=== PATIENT | female | born 1965 | race Caucasian/White ===

== ENCOUNTER 2019-03-10 14:58 | Inpatient (IN) ==
[2019-03-10] MEDS ORDERED: 0.9 % Sodium Chloride 1,000 ML IVC ONE ×2 (15:15→15:16)
[2019-03-10] MEDS ORDERED: Ondansetron 4 MG/2 ML VIAL IVP ONE (15:15)
[2019-03-10] MEDS ORDERED: Morphine Sulfate 2 MG/ML SYRINGE IVP ONE (15:15)
[2019-03-10] MEDS ORDERED: Pantoprazole 40 MG VIAL IVP ONE (15:16)
[2019-03-10] MEDS ORDERED: Isovue-370 500 ML BOTTLE IVP ONE ×2 (15:16→17:07)
--- NOTE | 2019-03-10 15:17 | Emergency Department Note ---
Disposition Clinical Impression: Hypokalemia, Hypoxemia Disposition: Admitted As Inpatient Condition: Good Time of Disposition: 18:43 Abdominal Pain HPI - General Chief Complaint: ED Abdominal Pain Stated Complaint: ABD Pain N/V Time Seen by Provider: 03/10/19 15:03 Source: patient Nursing Notes Reviewed: Yes Vital Signs Reviewed: Yes - History of Present Illness HPI Narrative: This 53 year female who reports to emergency department for concern for epigastric abdominal pain as well as nausea, vomiting. Patient states that she has had this over the last 2 weeks. Has had a CT scan that was -2 weeks ago and outside facility. Patient states that she is not getting any better. Patient denies any shortness of breath, chest pain. She does report being a type II diabetic mellitus. She localizes the tenderness to the epigastrium. It is sharp, nonradiating. No dysuria, urinary frequency, urgency. Pain Scale: 7 - Related Data Home Medications Medication Instructions Recorded Confirmed Glimepiride [Amaryl] 2 mg PO 0800 04/11/17 03/02/19 Insulin ASPART [Novolog Flexpen] 25 unit SQ TID 01/21/19 02/27/19 Dulaglutide [Trulicity] 0.75 mg SQ HS 02/27/19 02/27/19 FLUoxetine HCl [Prozac] 40 mg PO DAILY 02/27/19 03/02/19 Fenofibrate [Tricor] 54 mg PO DAILY 02/27/19 03/02/19 Fluticasone Propionate Nasal 50 mcg NS DAILY 02/27/19 02/27/19 [Flonase] Gabapentin [Neurontin] 200 mg PO TID 02/27/19 02/27/19 Insulin ASPART [Novolog] 25 units SQ TIDAC 02/27/19 02/27/19 Loratadine [Claritin] 10 mg PO DAILY 02/27/19 03/02/19 Lurasidone HCl [Latuda] 80 mg PO DAILY 02/27/19 03/02/19 Nystatin POWDER [Nystop] 1 appl TP BID 02/27/19 02/27/19 Omeprazole [PriLOSEC] 20 mg PO DAILY 02/27/19 03/02/19 Oxybutynin Chloride [Ditropan XL] 10 mg PO DAILY 02/27/19 02/27/19 Trospium Chloride 20 mg PO HS 02/27/19 02/27/19 risperiDONE [RisperDAL] 3 mg PO DAILY 02/27/19 02/27/19 Alogliptin Benzoate [Alogliptin] 25 mg PO DAILY 03/02/19 03/02/19 Atorvastatin [Lipitor] 80 mg PO HS 03/02/19 03/02/19 Ciprofloxacin HCl [Cipro] 500 mg PO BID 03/02/19 03/02/19 Furosemide [Lasix] 40 mg PO DAILY 03/02/19 03/02/19 Lisinopril [Zestril] 5 mg PO DAILY 03/02/19 03/02/19 Ondansetron HCl [Zofran] 4 mg PO Q8HR PRN 03/02/19 03/02/19 Potassium Chloride [Klor-Con 10] 10 meq PO DAILY 03/02/19 03/02/19 Promethazine [Phenergan] 25 mg PO Q6HR 03/02/19 03/02/19 metFORMIN [Glucophage] 1,000 mg PO BIDWM 03/02/19 03/02/19 Previous Rx's Medication Instructions Recorded HYDROcodone/Acet 5/325 mg [[place] 1 tab PO Q4H PRN 3 Days #14 tab 02/27/19 5-325 mg] Ondansetron ODT [Zofran ODT] 4 mg SL Q6HR #10 tab.rapdis 02/27/19 Allergies Allergy/AdvReac Type Severity Reaction Status Date / Time No Known Allergies Allergy Verified 03/02/19 14:58 All systems ED: reviewed and negative except as stated. Review of Systems: As Per HPI Constitutional: Denies: fever Cardiovascular: Denies: chest pain Respiratory: Denies: cough, dyspnea Gastrointestinal: Reports: abdominal pain, nausea, vomiting. 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 Psychiatric history: Reports: depression - Social History Smoking status: Current every day smoker Alcohol use: Reports: rarely Drug use: Reports: none Physical Exam - General Limitations: no limitations General appearance: alert, in no apparent distress, other (Patient with accessory muscle use, tachypnea appearing initially) - Head Head exam: normocephalic - Eye Eye exam: Present: EOMI - ENT ENT exam: mucous membranes moist - Neck Neck exam: Present: trachea midline - Chest Chest inspection: Present: symmetric chest wall rise - Respiratory Respiratory exam: Present: normal lung sounds bilaterally. Absent: respiratory distress, accessory muscle use - Cardiovascular Cardiovascular exam: Present: regular rate, normal rhythm, normal heart sounds - Abdominal Exam Abdominal exam: Present: soft, tenderness. Absent: distention, guarding, rebound, rigidity Abdominal tenderness: Present: epigastrium - Extremities Exam Extremities exam: Present: normal capillary refill Course Vital Signs Temperature 97.7 F 03/10/19 14:59 Pulse Rate 87 03/10/19 14:59 Respiratory Rate 16 03/10/19 14:59 Blood Pressure 116/83 03/10/19 14:59 O2 Sat by Pulse Oximetry 97 03/10/19 14:59 Temperature 97.6 F 03/10/19 20:54 Pulse Rate 70 03/10/19 20:54 Respiratory Rate 20 03/10/19 20:54 Blood Pressure 142/108 03/10/19 20:54 O2 Sat by Pulse Oximetry 100 03/10/19 20:54 Oxygen Delivery Oxygen Delivery Nasal Cannula Abdominal Pain - MDM Narrative Medical decision making narrative: 53-year-old female presents emergency department concern for epigastric abdominal pain, nausea, vomiting. She was tachypneic initially. She was hypoxic initially. Patient has CT scan obtained which did not reveal any acute abnormalities. She did have evidence of urinary tract infection which we treated with a gram of Rocephin IV. I was alerted as patient apparently turned blue, and became hypoxic with an O2 saturation down to 80. Responded minimally to the room, oxygen saturations back up to 100% with good waveform at that time. With not knowing the etiology for patient's in onset hypoxia with change of color, obtained a CT angiogram of the chest. Did not reveal any acute evidence of pulmonary embolism or pneumonia or any other cardiac abnormality. EKG did not reveal any ischemic ST changes. Interpretation was hindered somewhat by a bladder stimulator. However, patient is not reporting any chest pain throughout her stay. Due to concern for the hypoxic event that was witnessed by her nursing staff, abdullahi best to be admitted for hypoxic respiratory failure as well as some other electrolyte abnormalities as patient was severely hypokalemic with potassium 2.8. Patient was hemodynamically stable not appearing tachypnic at time of admission. Abdomen/Pelvis CT 03/10/19 15:17 IMPRESSION: 1. No evidence of pulmonary embolic disease. 2. No acute pulmonary findings. 3. No acute findings within the abdomen or pelvis. No CT evidence of appendicitis. 4. Mild thickening of the bladder wall, similar to previous imaging studies. Findings may be secondary to a cystitis. D/ / 03/10/2019 18:31:12 Myles Dave MD / rhea Interpreting Provider: Myles Dave MD Chest X-Ray 03/10/19 15:40 IMPRESSION: No acute process. D/ / Zeferino Goyal MD / Zeferino Goyal MD Interpreting Provider: Zeferino Goyal MD Chest CTA 03/10/19 17:07 IMPRESSION: 1. No evidence of pulmonary embolic disease. 2. No acute pulmonary findings. 3. No acute findings within the abdomen or pelvis. No CT evidence of appendicitis. 4. Mild thickening of the bladder wall, similar to previous imaging studies. Findings may be secondary to a cystitis. D/ / 03/10/2019 18:31:12 Myles Dave MD / rhea Interpreting Provider: Myles Dave MD - Lab Data Result diagrams: 03/10/19 15:35 03/10/19 15:35 Lab Results 03/10/19 03/10/19 03/10/19 Range/Units 15:19 15:35 15:35 WBC 8.7 (4.3-11.1) K/mcL RBC 6.05 H (3.82-4.97) M/mcL Hgb 15.6 H (11.5-15.4) g/dL Hct 48.5 H (35.3-44.9) % MCV 80.2 L (83.0-100.0) fL MCH 25.8 L (28.0-33.3) pg MCHC 32.2 (31.6-35.5) g/dL RDW 15.9 H (11.5-14.5) % Plt Count 194 (140-400) K/mcL MPV 12.7 H (9.4-12.4) fL Immature Gran % 0.2 (0-4) % Seg Neutrophils % 67.7 % Lymphocytes % 22.6 % Monocytes % 8.1 % Eosinophils % 0.9 % Basophils % 0.5 % Neutrophils # 5.9 (1.6-8.9) K/mcL Lymphocytes # 2.0 (0.6-4.6) K/mcL Monocytes # 0.7 (0.0-1.3) K/mcL Eosinophils # 0.1 (0.0-0.6) K/mcL Basophils # 0.0 (0.0-0.2) K/mcL Immature Plt Fraction 12.2 H (1.1-6.1) % Sodium 132 L (136-145) mEq/L Potassium 2.8 L (3.5-5.1) mEq/L Chloride 92 L (98-107) mEq/L Carbon Dioxide 28 (23-29) mEq/L BUN 12 (6-20) mg/dL Creatinine 0.89 (0.60-1.20) mg/dL Est GFR ( Amer) > 60 (> 60) Est GFR (Non-Af Amer) > 60 (> 60) BUN/Creatinine Ratio 13 (6-26) Glucose 301 H (70-105) mg/dL Calculated Osmolality 285 (280-300) Calcium 8.9 (8.6-10.3) mg/dL Total Bilirubin 1.0 (0.3-1.0) mg/dL AST 18 (13-39) Units/L ALT 19 (7-52) Units/L Alkaline Phosphatase 68 (34-104) Units/L Troponin I 0.03 (< 0.04) ng/mL B-Natriuretic Peptide (Less than 100) pg/mL Serum Total Protein 6.6 (6.4-8.9) g/dL Albumin 4.0 (3.5-5.7) g/dL Globulin 2.6 (2.4-3.5) g/dL Albumin/Globulin Ratio 1.5 (1.1-2.2) Lipase 17 (11-82) Units/L Urine Color Yellow (Yellow) Urine Clarity Turbid A (Clear) Urine pH 5.0 (5.0-8.0) pH Units Ur Specific [place] 1.017 (1.010-1.025) Urine Protein Trace (Neg-Trace) mg/dL Urine Glucose (UA) Normal (Normal) mg/dL Urine Ketones Negative (Negative) mg/dL Urine Blood Negative (Negative) Urine Nitrite Negative (Negative) Urine Bilirubin Negative (Negative) Urine Urobilinogen Normal (Normal) mg/dL Ur Leukocyte Esterase Small H (Negative) Urine Microscopic RBC 3-5 H (0-3) per hpf Urine Microscopic WBC 15-30 H (0-3) per hpf Ur Squamous Epith Cells Many H (None-Few) per lpf Urine Bacteria Moderate H (None-Few) per hpf Hyaline Casts Few (None-Few) per lpf Ur Culture Indicated? YES A (NO) 03/10/19 Range/Units 15:35 WBC (4.3-11.1) K/mcL RBC (3.82-4.97) M/mcL Hgb (11.5-15.4) g/dL Hct (35.3-44.9) % MCV (83.0-100.0) fL MCH (28.0-33.3) pg MCHC (31.6-35.5) g/dL RDW (11.5-14.5) % Plt Count (140-400) K/mcL MPV (9.4-12.4) fL Immature Gran % (0-4) % Seg Neutrophils % % Lymphocytes % % Monocytes % % Eosinophils % % Basophils % % Neutrophils # (1.6-8.9) K/mcL Lymphocytes # (0.6-4.6) K/mcL Monocytes # (0.0-1.3) K/mcL Eosinophils # (0.0-0.6) K/mcL Basophils # (0.0-0.2) K/mcL Immature Plt Fraction (1.1-6.1) % Sodium (136-145) mEq/L Potassium (3.5-5.1) mEq/L Chloride (98-107) mEq/L Carbon Dioxide (23-29) mEq/L BUN (6-20) mg/dL Creatinine (0.60-1.20) mg/dL Est GFR ( Amer) (> 60) Est GFR (Non-Af Amer) (> 60) BUN/Creatinine Ratio (6-26) Glucose (70-105) mg/dL Calculated Osmolality (280-300) Calcium (8.6-10.3) mg/dL Total Bilirubin (0.3-1.0) mg/dL AST (13-39) Units/L ALT (7-52) Units/L Alkaline Phosphatase (34-104) Units/L Troponin I (< 0.04) ng/mL B-Natriuretic Peptide 59 (Less than 100) pg/mL Serum Total Protein (6.4-8.9) g/dL Albumin (3.5-5.7) g/dL Globulin (2.4-3.5) g/dL Albumin/Globulin Ratio (1.1-2.2) Lipase (11-82) Units/L Urine Color (Yellow) Urine Clarity (Clear) Urine pH (5.0-8.0) pH Units Ur Specific [place] (1.010-1.025) Urine Protein (Neg-Trace) mg/dL Urine Glucose (UA) (Normal) mg/dL Urine Ketones (Negative) mg/dL Urine Blood (Negative) Urine Nitrite (Negative) Urine Bilirubin (Negative) Urine Urobilinogen (Normal) mg/dL Ur Leukocyte Esterase (Negative) Urine Microscopic RBC (0-3) per hpf Urine Microscopic WBC (0-3) per hpf Ur Squamous Epith Cells (None-Few) per lpf Urine Bacteria (None-Few) per hpf Hyaline Casts (None-Few) per lpf Ur Culture Indicated? (NO) Critical Care Time Critical Care Time: Yes Total Critical Care Time: 35 Attestation: Rectal care time 35 minutes managing patient's chest pain and hypoxic episode. Attestation Statement - Attestation Attestation: Patient was seen with resident physician. I reviewed the history, physical, assessment and plan, and agree with the findings. I also personally evaluated this patient and had [id number] time with this patient. 53-year-old female presents emergency Department with chronic abdominal pain. Patient states she has had pain for months. Tonight midepigastric area and left upper quadrant she been taking Excedrin without any relief. Pain also is a little bit upwards into the chest she feels little short of breath with that as well. He said she has had CT scans in the past and they have not found anything. She is not tried any reflux medications that she is aware of. No other complaints at this time. She is here today because she said she cannot take the pain anymore. Review of systems. Patient also has some nausea and vomiting. Remainder negative. Physical exam vital signs are stable. ENT is unremarkable. Heart regular rhythm and rate. Lungs clear. Abdomen is soft minimal tenderness midepigastric and left upper quadrant. No guarding rigidity. Extremities unremarkable. Neurologically intact. Skin no rashes. Psych normal. ED course. With the patient's shortness of breath we will do CTA of the chest as well as abdomen and pelvis to look for abnormalities. We will get basic labs including LFTs and pancreatic testing. We will treat with IV hydration and nausea medication. As well as pain medication and Protonix. During her stay the nurse reported that the patient had become hypoxic had some cyanotic appearance and of pulse ox dropped into the 80s. Although this resolved spontaneously, it was concerning for possible signs of a PE. A CT of the chest was obtained and it was negative as was a CT the abdomen. Labs are largely unremarkable. Because of the patient's multiple issues and her chest pain she will be admitted for additional evaluation and treatment. We spoke the hospitalist service agreed to accept the patient for admission. Agree with resident physician assessment and plan. ED procedures. I reviewed the patient's EKG as well as the resident physician interpretation and I agree with the findings.
[2019-03-10 15:28] LABS: Bilirubin,Urine Negative (Negative); Blood,Urine Negative (Negative); Clarity,Urine Turbid (Clear); Color,Urine Yellow (Yellow); Glucose,Urine (UA) Normal (Normal); Ketones,Urine Negative (Negative); Leukocyte Esterase,Urine Small (Negative); Nitrite,Urine Negative (Negative); Protein,Urine Trace mg/dL (Neg-Trace); Specific Gravity,Urine 1.017 (1.010-1.025); Urobilinogen,Urine Normal (Normal)
[2019-03-10 15:29] LABS: Bacteria,Urine Moderate per hpf (None-Few); Squamous Epithelial Cell,Urine Many per lpf (None-Few); WBC,Urine 15-30 per hpf (0-3)
[2019-03-10 15:45] LABS: Hyaline Casts,Urine Few per lpf (None-Few)
[2019-03-10 15:51] LABS: Eosinophils % 0.9 %; Mean Corpuscular Volume 80.2 fL (83.0-100.0)
[2019-03-10 15:53] LABS: Basophils % 0.5 %; Eosinophils # 0.1 K/mcL (0.0-0.6); Hematocrit 48.5 % (35.3-44.9); Hemoglobin 15.6 g/dL (11.5-15.4); Immature Granulocytes % 0.2 % (0-4); Immature Platelets 12.2 % (1.1-6.1); Lymphocytes % 22.6 %; Mean Corpuscular HGB Conc 32.2 g/dL (31.6-35.5); Mean Corpuscular Hemoglobin 25.8 pg (28.0-33.3); Mean Platelet Volume 12.7 fL (9.4-12.4); Monocytes # 0.7 K/mcL (0.0-1.3); Monocytes % 8.1 %; Neutrophils # 5.9 K/mcL (1.6-8.9); Platelet Count 194 K/mcL (140-400); Red Blood Count 6.05 M/mcL (3.82-4.97); Red Cell Distribution Width 15.9 % (11.5-14.5); Segmented Neutrophils % 67.7 %; White Blood Count 8.7 K/mcL (4.3-11.1)
[2019-03-10 16:10] LABS: Alanine Aminotransferase 19 Units/L (7-52); Albumin/Globulin Ratio 1.5 (1.1-2.2); Alkaline Phosphatase 68 Units/L (34-104); Aspartate Amino Transferase 18 Units/L (13-39); BUN/Creatinine Ratio 13 (6-26); Blood Urea Nitrogen 12 mg/dL (6-20); Calcium 8.9 mg/dL (8.6-10.3); Carbon Dioxide 28 mEq/L (23-29); Chloride 92 mEq/L (98-107); Globulin 2.6 g/dL (2.4-3.5); Glucose 301 mg/dL (70-105); Lipase 17 Units/L (11-82); Osmolality,Calculated 285 (280-300); Potassium 2.8 mEq/L (3.5-5.1); Sodium 132 mEq/L (136-145); Total Protein 6.6 g/dL (6.4-8.9); eGFR For African Americans > 60 (> 60); eGFR For Non-African Americans > 60 (> 60)
[2019-03-10 16:17] LABS: Troponin I 0.03 ng/mL (< 0.04)
[2019-03-10] MEDS ORDERED: Potassium Chloride 20 MEQ, Lidocaine 1% 2 ML in 0.9 % Sodium Chloride 250 ML IVPB ONE (16:26)
[2019-03-10] MEDS ORDERED: cefTRIAXone 1,000 MG in Water for inj. (sterile) 10 ML IVP ONE (16:27)
[2019-03-10] MEDS ORDERED: Dextrose Gel 15 GM/37.5 ML TUBE PO PRN ×2 (19:41)
[2019-03-10] MEDS ORDERED: Naloxone 0.4 MG/ML INJ IVP PRN (19:41)
[2019-03-10] MEDS ORDERED: *HR* Dextrose 50 % in Water (Syg) 50 ML SYRINGE IVP PRN (19:41)
[2019-03-10] MEDS ORDERED: Ondansetron ODT 4 MG TAB.RAPDIS SL PRN (19:41)
[2019-03-10] MEDS ORDERED: D5% in Water 1,000 ML IVC PRN (19:41)
[2019-03-10] MEDS ORDERED: Ringers Solution, Lactated 1,000 ML IVC SCH (19:45)
--- NOTE | 2019-03-10 20:51 | Internal Med History&Physical ---
Date of Encounter: 03/11/19 Time of Encounter: 20:49 Internal Medicine - H&P: HPI Admitted From: Home Plans for Post Hospital Care: Home History of present illness: Ms. Mayberry is a 53 year old female with past medical history of type 2 diabetes, appendectomy presented to the ED for intractable nausea and vomiting. Face to face encounter occurred at 9:13pm. Patient is a very difficult historian. The patient stated that she has been having abdominal pain for 2 months generalized nonradiating sharp with no alleviating factor. Exacerbated with food. NO association with fever, chills, chest pain, dysuria, or rectal bleeding. Patient admitted Constipation and nausea and vomiting. Patient reported unlike an outpatient has been having nausea and vomiting. Patient attempted to eat to toast however continued to vomit throughout has vomited at least 5 times. Patient stated the vomit is usually watery and small amount and does not become retching. Patient reported no bowel movements for days and cant remember the last time she went. Personally reviewed patient's past medical, surgical, family and social history. Code status discussed and is FULL code. Past Med Surg Social Fam HX - Past Medical History Medical history: COPD, diabetes, GERD, hyperlipidemia, hypertension, other Additional medical history: BLADDER STIMULATOR Psychiatric history: depression - Past Surgical History Surgical History: appendectomy Additional surgical history: BLADDER STIMULATOR - Social History Smoking Status: Current every day smoker Smokeless Tobacco Status: No Alcohol use: rarely Drug use: none - Family History Mother Hx Family Endocrine Disorder: Yes Internal Medicine - H&P: Meds Glimepiride [Amaryl] 2 mg PO 0800 04/11/17 [History] Insulin ASPART [Novolog Flexpen] 25 unit SQ TID 01/21/19 [History] Dulaglutide [Trulicity] 0.75 mg SQ HS 02/27/19 [History] FLUoxetine HCl [Prozac] 40 mg PO DAILY 02/27/19 [History] Fenofibrate [Tricor] 54 mg PO DAILY 02/27/19 [History] Fluticasone Propionate Nasal [Flonase] 50 mcg NS DAILY 02/27/19 [History] Gabapentin [Neurontin] 200 mg PO TID 02/27/19 [History] HYDROcodone/Acet 5/325 mg [[place] 5-325 mg] 1 tab PO Q4H PRN 3 Days #14 tab 02/27/19 [Rx] Insulin ASPART [Novolog] 25 units SQ TIDAC 02/27/19 [History] Loratadine [Claritin] 10 mg PO DAILY 02/27/19 [History] Lurasidone HCl [Latuda] 80 mg PO DAILY 02/27/19 [History] Nystatin POWDER [Nystop] 1 appl TP BID 02/27/19 [History] Omeprazole [PriLOSEC] 20 mg PO DAILY 02/27/19 [History] Ondansetron ODT [Zofran ODT] 4 mg SL Q6HR #10 tab.rapdis 02/27/19 [Rx] Oxybutynin Chloride [Ditropan XL] 10 mg PO DAILY 02/27/19 [History] Trospium Chloride 20 mg PO HS 02/27/19 [History] risperiDONE [RisperDAL] 3 mg PO DAILY 02/27/19 [History] Alogliptin Benzoate [Alogliptin] 25 mg PO DAILY 03/02/19 [History] Atorvastatin [Lipitor] 80 mg PO HS 03/02/19 [History] Ciprofloxacin HCl [Cipro] 500 mg PO BID 03/02/19 [History] Furosemide [Lasix] 40 mg PO DAILY 03/02/19 [History] Lisinopril [Zestril] 5 mg PO DAILY 03/02/19 [History] Ondansetron HCl [Zofran] 4 mg PO Q8HR PRN 03/02/19 [History] Potassium Chloride [Klor-Con 10] 10 meq PO DAILY 03/02/19 [History] Promethazine [Phenergan] 25 mg PO Q6HR 03/02/19 [History] metFORMIN [Glucophage] 1,000 mg PO BIDWM 03/02/19 [History] Allergy/AdvReac Type Severity Reaction Status Date / Time No Known Allergies Allergy Verified 03/02/19 14:58 All Systems PM: A 10-system review of systems was performed and is negative for pertinent findings except as documented above in the HPI. Review of systems: General: No unintentional weightloss, No fever Head: No headahce, No injury. Ears: No discharge, No earache Eyes: No drainage, No eye pain Mouth and Throat: No new ulcers, No pain Nose and Sinus: No new congestion, No pain, Respiratory: No cough, No sputum production, No dyspnea Cardiovascular: No chest pain, No palpitations. Gastrointestinal: + nausea, + vomiting. + abdominal pain. Genital Tract: No discharge, No pain Urinary Tract: No dysuria, No discharge. MSK: No new/worsening joint pain, No new/worsening muscle ache. Endocrine: No cold intolerance, No polyuria Psychological: No suicidal, No homocidal ideation. - Constitutional Vitals: Temp Pulse Resp BP Pulse Ox 97.7 F 76 21 143/53 96 03/10/19 14:59 03/10/19 18:55 03/10/19 18:55 03/10/19 18:55 03/10/19 19:00 Exam: General Appearance: Appearing as age, well-nourished in mild acute distress. Head: Atraumatic normocephalic Skin: Normal texture, normal turgor, warm, dry. xerosis Eyes: Conjunctivae not pale with no erythema, drainage, or ulcers. Anicteric. Neck: No Lymphadenopathy in the anterior/posterior cervical chain. No thyromegaly, masses or ulcers. Trachea midline. Heart: RRR, Capillary refill 3 seconds Lungs: No accessory muscle usage, lungs clear to auscultation bilaterally, no wheezes or crackles. Extremities: No pitting edema, No clubbing, No cyanosis. Abdomen:distended, normoactive bowel sounds. exquistively tender to palpation, with guarding but no peritoneal signs Neuro: AOx3 with no new sensory loss or focal deficits. MSK: Strength 5/5 Upper extremity equal bilaterally. Strength 5/5 Lower extremity equal bilaterally Internal Med - H&P Results - Labs CBC & Chem 7: 03/10/19 15:35 03/10/19 15:35 Labs: Short CBC 03/10/19 Range/Units 15:35 WBC 8.7 (4.3-11.1) K/mcL Hgb 15.6 H (11.5-15.4) g/dL Hct 48.5 H (35.3-44.9) % Plt Count 194 (140-400) K/mcL Neutrophils # 5.9 (1.6-8.9) K/mcL BMP 03/10/19 15:35 Sodium 132 L Potassium 2.8 L Chloride 92 L Carbon Dioxide 28 BUN 12 Creatinine 0.89 Glucose 301 H Calcium 8.9 Cardiac Enzymes 03/10/19 Range/Units 15:35 Troponin I 0.03 (< 0.04) ng/mL Liver Function 03/10/19 Range/Units 15:35 Total Bilirubin 1.0 (0.3-1.0) mg/dL AST 18 (13-39) Units/L ALT 19 (7-52) Units/L Alkaline Phosphatase 68 (34-104) Units/L Albumin 4.0 (3.5-5.7) g/dL Urine 03/10/19 Range/Units 15:19 Urine Color Yellow (Yellow) Urine Clarity Turbid A (Clear) Urine pH 5.0 (5.0-8.0) pH Units Ur Specific [place] 1.017 (1.010-1.025) Urine Protein Trace (Neg-Trace) mg/dL Urine Glucose (UA) Normal (Normal) mg/dL - Impressions ITS Impressions Abdomen/Pelvis CT 03/10/19 15:17 IMPRESSION: 1. No evidence of pulmonary embolic disease. 2. No acute pulmonary findings. 3. No acute findings within the abdomen or pelvis. No CT evidence of appendicitis. 4. Mild thickening of the bladder wall, similar to previous imaging studies. Findings may be secondary to a cystitis. D/ / 03/10/2019 18:31:12 Myles Dave MD / rhea Interpreting Provider: Myles Dave MD Chest X-Ray 03/10/19 15:40 IMPRESSION: No acute process. D/ / Zeferino Goyal MD / Zeferino Goyal MD Interpreting Provider: Zeferino Goyal MD Chest CTA 03/10/19 17:07 IMPRESSION: 1. No evidence of pulmonary embolic disease. 2. No acute pulmonary findings. 3. No acute findings within the abdomen or pelvis. No CT evidence of appendicitis. 4. Mild thickening of the bladder wall, similar to previous imaging studies. Findings may be secondary to a cystitis. D/ / 03/10/2019 18:31:12 Myles Dave MD / rhea Interpreting Provider: Myles Dave MD - Summary of Assessment and Plan Summary of Assessment and Plan: 1.Abdominal pain: Etiology unclear. Treating for mild pyelonephritis, with suspected gallbladder disease. CT abdomen with contrast showed no acute process however noted bladder th ickening and gallbladder distended. Ultrasound gallbladder, nothing by mouth. Patient denied any dysuria symptoms, but due pyuria and significantly lower abdominal pain tenderness,and cva tenderness- will give empiric ceftriaxone and await cultures. GC pending. Patient has had multiple ED visits for abdominal pain and on exam shows significantly tender. Ceftriaxone, and Continue to follow. 2.Acute hypoxic Respiratory failure: De-sated while in the ER currently on 2l. Baseline is RA. CTA negative. Resolution after being on the floor. Satting 98% on room air. continue pulse ox. 3.Uncontrolled type 2 diabetes: On both oral and insulin at home. A1c pending insulin sliding scale. 4.Uncontrolled HTN: Continue home med. 5.Hypokalemia: replaced. 6.Severe Nausea and vomiting with Metabolic and respiratory alkalosis: Failed zofran oral and IV. UDS to check for marijuana. ordered Phenergan(discussion with patient was made) and GI consultation. DVT prophylaxis: Heparin Dispo: Likely less than 2 day stay. Event: Patient was noted to be chugging ice chips and then self induce vomiting. Patient was noted to be doing this multiple times. Recommened patient to be NPO and to replete fluids via IVF. Patient decline and requested only oral. When refused, patient stood up and started to drink water from the faucet. Patient continued to not cooperate with management despite medical advice. Patient verbalized undestanding and did not want to be NPO but continue to drink from faucet to induce vomiting. Discussed with patient on IV phenergan which included risks and benefits and the patient verbalized understanding and agreed for therapy. Patient was AOx3 and competent throughout the encounter. Another encounter: Patient continue to self induce vomiting and per nursing staff drinking faucet water to get volume enough to vomit. On arrival to the room, Patient reported the drinking of water helps with the nausea and vomiting. Discussion at length and after multiple negotiation. Patient agreed to keep the IV peripheral to get fluids. Noted ABG showing mixed respiratory and metabolic alkalosis. Patient was given 1 mg of ativan for the resp alkalosis secondary to anxiety. Phenergan to help with the nausea. Patient agreed to stop taking off the IV, drinking water from the faucet and self inducing vomiting. Will consult psych and continue to follow up. - Time Spent With Patient Total time spent is greater than 37 minutes 50% in coordination of care (as documented) at patient's floor/unit and/or counseling patient: Greater than 35 minutes
[2019-03-10] MEDS ORDERED: Furosemide 40 MG/4 ML VIAL IVP SCH (21:30)
[2019-03-10] MEDS ORDERED: Ondansetron 4 MG/2 ML VIAL IVP PRN (22:05)
[2019-03-10 22:19] LABS: ABG Base Excess 3 mEq/L (-2 to 3); ABG HCO3 22 mEq/L (21-27); ABG Oxygen Saturation 97 % (95-98); ABG PCO2 23 mmHg (35-45); ABG PO2 72 mmHg (85-104); ABG TCO2 23 mEq/L (20-26)
[2019-03-10] MEDS: Insulin LISPRO 300 UNITS/3 ML VIAL SQ SCH (23:25)
[2019-03-11] MEDS ORDERED: *HR* LORazepam 2 MG/ML VIAL IVP PRN (01:59)
[2019-03-11] MEDS ORDERED: *HR* Promethazine 25 MG/ML VIAL IVP PRN (02:00)
[2019-03-11 05:30] LABS: Basophils % 0.2 %; Eosinophils % 0.2 %; Hematocrit 43.9 % (35.3-44.9); Immature Granulocytes % 0.4 % (0-4); Lymphocytes # 1.4 K/mcL (0.6-4.6); Lymphocytes % 13.8 %; Mean Corpuscular HGB Conc 31.4 g/dL (31.6-35.5); Mean Corpuscular Volume 82.7 fL (83.0-100.0); Mean Platelet Volume 13.3 fL (9.4-12.4); Monocytes # 0.9 K/mcL (0.0-1.3); Monocytes % 8.9 %; Neutrophils # 7.5 K/mcL (1.6-8.9); Platelet Count 184 K/mcL (140-400); Red Blood Count 5.31 M/mcL (3.82-4.97); Red Cell Distribution Width 15.9 % (11.5-14.5); Segmented Neutrophils % 76.5 %; White Blood Count 9.8 K/mcL (4.3-11.1)
[2019-03-11 05:33] LABS: Hemoglobin 13.8 g/dL (11.5-15.4)
[2019-03-11 05:38] LABS: BUN/Creatinine Ratio 11 (6-26); Blood Urea Nitrogen 9 mg/dL (6-20); Calcium 8.1 mg/dL (8.6-10.3); Carbon Dioxide 27 mEq/L (23-29); Chloride 98 mEq/L (98-107); Glucose 157 mg/dL (70-105); Magnesium 1.1 mg/dL (1.6-2.6); Osmolality,Calculated 284 (280-300); Phosphorous 2.3 mg/dL (2.7-4.5); Potassium 3.4 mEq/L (3.5-5.1); Sodium 136 mEq/L (136-145); eGFR For African Americans > 60 (> 60); eGFR For Non-African Americans > 60 (> 60)
[2019-03-11 05:49] LABS: ABG Base Excess 3 mEq/L (-2 to 3); ABG HCO3 28 mEq/L (21-27); ABG Oxygen Saturation 98 % (95-98); ABG PCO2 42 mmHg (35-45); ABG PH 7.43 pH Units (7.32-7.45); ABG PO2 99 mmHg (85-104); ABG TCO2 29 mEq/L (20-26)
[2019-03-11 06:19] LABS: Amphetamine Screen,Urine Negative ng/mL (Cutoff=1000); Barbiturate Screen,Urine Negative ng/mL (Cutoff=200)
[2019-03-11 06:20] LABS: Benzodiazepines Screen,Urine Negative ng/mL (Cutoff=300); Cannabinoid Screen,Urine Negative ng/mL (Cutoff = 50); Cocaine Screen,Urine Negative ng/mL (Cutoff= 300); Opiate Screen,Urine Positive ng/mL (Cutoff=300); Phencyclidine Screen,Urine Negative ng/mL (Cutoff=25)
[2019-03-11] MEDS: 0.9 % Sodium Chloride 1,000 ML IVC SCH (07:02)
[2019-03-11] MEDS ORDERED: Furosemide 40 MG/4 ML VIAL IVP SCH (08:00)
[2019-03-11] MEDS: Gabapentin 100 MG CAPSULE PO SCH ×3 (08:38→20:28)
[2019-03-11] MEDS: Insulin LISPRO 300 UNITS/3 ML VIAL SQ SCH ×3 (08:38→16:30)
[2019-03-11] MEDS ORDERED: cefTRIAXone 1,000 MG in Water for inj. (sterile) 10 ML IVP SCH (09:00)
--- NOTE | 2019-03-11 09:55 | Consult Note ---
Date of Encounter: 03/11/19 Time of Encounter: 09:49 History of Present Illness Requesting Physician: Carl Echevarria MD Reason for consult: Bizarre behavior, agitatation History of present illness: Ms. Mayberry is a 53 year old female with a history of COPD, GERD, diabetes, HTN, HLD, and depression who presented to the ED yesterday for evaluation of intractable nausea and vomiting. Overnight, patient was observed to have some unusual behavior, reportedly drinking from the sink of her room despite resulting vomiting. Staff repeatedly educated the patient on the care plan of antiemetics and NPO; however, she continued to attempt to drink regardless. She reportedly had some other bizarre behavior overnight; review of MAR shows one dose of ativan overnight, presumably administered for agitation. On evaluation this morning, patient is very somnolent and difficult to wake. She is able to articulate that she came to the hospital because of nausea and vomiting, and states that she continued to drink from the sink "because I was t hirsty". She quickly falls back to sleep and is unable to provide any other information. CC: Carl Echevarria MD Past Med Surg Social Fam HX - Past Medical History Medical history: COPD, diabetes, GERD, hyperlipidemia, hypertension, other - Past Surgical History Surgical History: appendectomy - Social History Smoking Status: Current every day smoker Smokeless Tobacco Status: No Alcohol use: rarely Drug use: none - Family History Mother Hx Family Endocrine Disorder: Yes Medications & Allergies Glimepiride [Amaryl] 2 mg PO 0800 04/11/17 [History] Insulin ASPART [Novolog Flexpen] 25 unit SQ TID 01/21/19 [History] Dulaglutide [Trulicity] 0.75 mg SQ HS 02/27/19 [History] FLUoxetine HCl [Prozac] 40 mg PO DAILY 02/27/19 [History] Fenofibrate [Tricor] 54 mg PO DAILY 02/27/19 [History] Fluticasone Propionate Nasal [Flonase] 50 mcg NS DAILY 02/27/19 [History] Gabapentin [Neurontin] 200 mg PO TID 02/27/19 [History] HYDROcodone/Acet 5/325 mg [[place] 5-325 mg] 1 tab PO Q4H PRN 3 Days #14 tab 02/27/19 [Rx] Insulin ASPART [Novolog] 25 units SQ TIDAC 02/27/19 [History] Loratadine [Claritin] 10 mg PO DAILY 02/27/19 [History] Lurasidone HCl [Latuda] 80 mg PO DAILY 02/27/19 [History] Nystatin POWDER [Nystop] 1 appl TP BID 02/27/19 [History] Omeprazole [PriLOSEC] 20 mg PO DAILY 02/27/19 [History] Ondansetron ODT [Zofran ODT] 4 mg SL Q6HR #10 tab.rapdis 02/27/19 [Rx] Oxybutynin Chloride [Ditropan XL] 10 mg PO DAILY 02/27/19 [History] Trospium Chloride 20 mg PO HS 02/27/19 [History] risperiDONE [RisperDAL] 3 mg PO DAILY 02/27/19 [History] Alogliptin Benzoate [Alogliptin] 25 mg PO DAILY 03/02/19 [History] Atorvastatin [Lipitor] 80 mg PO HS 03/02/19 [History] Ciprofloxacin HCl [Cipro] 500 mg PO BID 03/02/19 [History] Furosemide [Lasix] 40 mg PO DAILY 03/02/19 [History] Lisinopril [Zestril] 5 mg PO DAILY 03/02/19 [History] Ondansetron HCl [Zofran] 4 mg PO Q8HR PRN 03/02/19 [History] Potassium Chloride [Klor-Con 10] 10 meq PO DAILY 03/02/19 [History] Promethazine [Phenergan] 25 mg PO Q6HR 03/02/19 [History] metFORMIN [Glucophage] 1,000 mg PO BIDWM 03/02/19 [History] Allergy/AdvReac Type Severity Reaction Status Date / Time No Known Allergies Allergy Verified 03/02/19 14:58 Review of Systems ROS limited: due to patient condition Gastrointestinal: Reports: abdominal pain, nausea, vomiting Psychiatry Exam - Constitutional Vitals: Temp Pulse Resp BP Pulse Ox 98.2 F 98 18 112/66 95 03/11/19 08:09 03/11/19 08:09 03/11/19 08:09 03/11/19 08:09 03/11/19 08:09 General appearance: well-nourished, unkempt, disheveled Additional observations: Very limited exam due to patient somnolence and confusion. - Musculoskeletal Strength & Tone: normal for patient (grossly normal on observation) - Psychiatric Level of alertness: Sedated Eye Contact: No Eye Contact Speech Volume: Soft/Quiet Speech pattern: limited, mumbled Attention Span Ability: Unable to Focus Results - Drug Levels and Toxicology Drug Levels and Toxicology: Drug Levels and Toxicity 03/11/19 06:00 Urine Opiates Screen Positive H Ur Barbiturates Screen Negative Ur Phencyclidine Scrn Negative Ur Amphetamines Screen Negative U Benzodiazepines Scrn Negative Urine Cocaine Screen Negative U Marijuana (THC) Screen Negative - Labs Labs: Laboratory Last Values WBC 9.8 K/mcL (4.3-11.1) 03/11/19 04:59 RBC 5.31 M/mcL (3.82-4.97) H 03/11/19 04:59 Hgb 13.8 g/dL (11.5-15.4) D 03/11/19 04:59 Hct 43.9 % (35.3-44.9) 03/11/19 04:59 MCV 82.7 fL (83.0-100.0) L 03/11/19 04:59 MCH 26.0 pg (28.0-33.3) L 03/11/19 04:59 MCHC 31.4 g/dL (31.6-35.5) L 03/11/19 04:59 RDW 15.9 % (11.5-14.5) H 03/11/19 04:59 Plt Count 184 K/mcL (140-400) 03/11/19 04:59 MPV 13.3 fL (9.4-12.4) H 03/11/19 04:59 Immature Gran % 0.4 % (0-4) 03/11/19 04:59 Seg Neutrophils % 76.5 % 03/11/19 04:59 Lymphocytes % 13.8 % 03/11/19 04:59 Monocytes % 8.9 % 03/11/19 04:59 Eosinophils % 0.2 % 03/11/19 04:59 Basophils % 0.2 % 03/11/19 04:59 Neutrophils # 7.5 K/mcL (1.6-8.9) 03/11/19 04:59 Lymphocytes # 1.4 K/mcL (0.6-4.6) 03/11/19 04:59 Monocytes # 0.9 K/mcL (0.0-1.3) 03/11/19 04:59 Eosinophils # 0.0 K/mcL (0.0-0.6) 03/11/19 04:59 Basophils # 0.0 K/mcL (0.0-0.2) 03/11/19 04:59 Immature Plt Fraction 12.2 % (1.1-6.1) H 03/10/19 15:35 Sample Site L Radial 03/11/19 05:44 ABG pH 7.43 pH Units (7.32-7.45) 03/11/19 05:44 ABG pCO2 42 mmHg (35-45) 03/11/19 05:44 ABG pO2 99 mmHg (85-104) 03/11/19 05:44 ABG HCO3 28 mEq/L (21-27) H 03/11/19 05:44 ABG Total CO2 29 mEq/L (20-26) H 03/11/19 05:44 ABG O2 Saturation 98 % (95-98) 03/11/19 05:44 ABG Base Excess 3 mEq/L (-2 to 3) 03/11/19 05:44 Manjeet Test Positive 03/11/19 05:44 O2 Delivery Device Cannula 03/11/19 05:44 Inspired O2 2.0 (1-15=lpm [id number]=%) 03/11/19 05:44 Sodium 136 mEq/L (136-145) 03/11/19 04:59 Potassium 3.4 mEq/L (3.5-5.1) L 03/11/19 04:59 Chloride 98 mEq/L (98-107) 03/11/19 04:59 Carbon Dioxide 27 mEq/L (23-29) 03/11/19 04:59 BUN 9 mg/dL (6-20) 03/11/19 04:59 Creatinine 0.82 mg/dL (0.60-1.20) 03/11/19 04:59 Est GFR ( Amer) > 60 (> 60) 03/11/19 04:59 Est GFR (Non-Af Amer) > 60 (> 60) 03/11/19 04:59 BUN/Creatinine Ratio 11 (6-26) 03/11/19 04:59 Glucose 157 mg/dL (70-105) H 03/11/19 04:59 Calculated Osmolality 284 (280-300) 03/11/19 04:59 Lactic Acid 1.2 mmol/L (0.5-2.2) 03/10/19 19:31 Calcium 8.1 mg/dL (8.6-10.3) L 03/11/19 04:59 Phosphorus 2.3 mg/dL (2.7-4.5) L 03/11/19 04:59 Magnesium 1.1 mg/dL (1.6-2.6) L 03/11/19 04:59 Total Bilirubin 1.0 mg/dL (0.3-1.0) 03/10/19 15:35 AST 18 Units/L (13-39) 03/10/19 15:35 ALT 19 Units/L (7-52) 03/10/19 15:35 Alkaline Phosphatase 68 Units/L (34-104) 03/10/19 15:35 Troponin I < 0.03 ng/mL (< 0.04) 03/10/19 22:00 B-Natriuretic Peptide 62 pg/mL (Less than 100) 03/10/19 22:00 Serum Total Protein 6.6 g/dL (6.4-8.9) 03/10/19 15:35 Albumin 4.0 g/dL (3.5-5.7) 03/10/19 15:35 Globulin 2.6 g/dL (2.4-3.5) 03/10/19 15:35 Albumin/Globulin Ratio 1.5 (1.1-2.2) 03/10/19 15:35 Lipase 17 Units/L (11-82) 03/10/19 15:35 Urine Color Yellow (Yellow) 03/10/19 15:19 Urine Clarity Turbid (Clear) A 03/10/19 15:19 Urine pH 5.0 pH Units (5.0-8.0) 03/10/19 15:19 Ur Specific [place] 1.017 (1.010-1.025) 03/10/19 15:19 Urine Protein Trace mg/dL (Neg-Trace) 03/10/19 15:19 Urine Glucose (UA) Normal mg/dL (Normal) 03/10/19 15:19 Urine Ketones Negative mg/dL (Negative) 03/10/19 15:19 Urine Blood Negative (Negative) 03/10/19 15:19 Urine Nitrite Negative (Negative) 03/10/19 15:19 Urine Bilirubin Negative (Negative) 03/10/19 15:19 Urine Urobilinogen Normal mg/dL (Normal) 03/10/19 15:19 Ur Leukocyte Esterase Small (Negative) H 03/10/19 15:19 Urine Microscopic RBC 3-5 per hpf (0-3) H 03/10/19 15:19 Urine Microscopic WBC 15-30 per hpf (0-3) H 03/10/19 15:19 Ur Squamous Epith Cells Many per lpf (None-Few) H 03/10/19 15:19 Urine Bacteria Moderate per hpf (None-Few) H 03/10/19 15:19 Hyaline Casts Few per lpf (None-Few) 03/10/19 15:19 Ur Culture Indicated? YES (NO) A 03/10/19 15:19 Urine Opiates Screen Positive ng/mL (Vcctjz=487) H 03/11/19 06:00 Ur Buprenorphine Scrn Negative ng/mL (Cutoff=5) 03/11/19 06:00 Ur Barbiturates Screen Negative ng/mL (Dmotwr=947) 03/11/19 06:00 Ur Phencyclidine Scrn Negative ng/mL (Cutoff=25) 03/11/19 06:00 Ur Amphetamines Screen Negative ng/mL (Skcexn=0326) 03/11/19 06:00 U Benzodiazepines Scrn Negative ng/mL (Lvutiy=365) 03/11/19 06:00 Urine Cocaine Screen Negative ng/mL (Cutoff= 300) 03/11/19 06:00 U Marijuana (THC) Screen Negative ng/mL (Cutoff = 50) 03/11/19 06:00 Ur Drug Screen Interp See Below 03/11/19 06:00 Person Notif of Carmen timmons lasha 03/10/19 22:08 - Impressions Impressions Abdomen/Pelvis CT 03/10/19 15:17 IMPRESSION: 1. No evidence of pulmonary embolic disease. 2. No acute pulmonary findings. 3. No acute findings within the abdomen or pelvis. No CT evidence of appendicitis. 4. Mild thickening of the bladder wall, similar to previous imaging studies. Findings may be secondary to a cystitis. D/ / 03/10/2019 18:31:12 Myles Dave MD / rhea Interpreting Provider: Myles Dave MD Chest X-Ray 03/10/19 15:40 IMPRESSION: No acute process. D/ / Zeferino Goyal MD / Zeferino Goyal MD Interpreting Provider: Zeferino Goyal MD Chest CTA 03/10/19 17:07 IMPRESSION: 1. No evidence of pulmonary embolic disease. 2. No acute pulmonary findings. 3. No acute findings within the abdomen or pelvis. No CT evidence of appendicitis. 4. Mild thickening of the bladder wall, similar to previous imaging studies. Findings may be secondary to a cystitis. D/ / 03/10/2019 18:31:12 Myles Dave MD / rhea Interpreting Provider: Myles Dave MD Consult Discharge Plan - Plan Referrals: Geoffrey Mayberry DO [Primary Care Provider] - - Attending Attestation I examined this patient and my medical decision-making was reviewed with the Resident Physician. I agree with the documented findings, disposition and treatment plan as described except to the extent set forth below. Ms. Mayberry is a 53 year old female with a history of COPD, GERD, diabetes, HTN, HLD, and depression who presented to the ED yesterday for evaluation of intractable nausea and vomiting. Overnight, patient was observed to have some unusual behavior, reportedly drinking from the sink of her room despite resulting vomiting. Staff repeatedly educated the patient on the care plan of antiemetics and NPO; however, she continued to attempt to drink regardless. She reportedly had some other bizarre behavior overnight; review of MAR shows one dose of ativan overnight, presumably administered for agitation. On evaluation this morning, patient is very somnolent and difficult to wake. She is able to articulate that she came to the hospital because of nausea and vomiting. She denies being agitated last night stating only that she was upset that they would not let her drink water and so she tried to get the sink to drink water and they would not let her. He does endorse a history of bipolar disorder for which she takes trazodone and fluoxetine. She says that she has never been floridly psychotic in the past she has had psychiatric hospitalizations related to depression previously. This morning she is somewhat sedated likely from the medication she was given and the evening. She does not appear psychotic at this time. If she were to have another episode of agitation I would recommend using Haldol as needed either IV or oral I dealing with telemetry of possible. If she again becomes unwilling to stay in her bed she may need a sitter. This does not seem to be related to her underlying bipolar disorder but instead is likely a part of what ever medical complex is going on at this time.
[2019-03-11 10:05] LABS: Estimated Average Glucose 243 mg/dl
--- NOTE | 2019-03-11 11:03 | Gastroenterology Consult Note ---
<Sera Edmond - Last Filed: 03/11/19 14:42> Date of Encounter: 03/11/19 Time of Encounter: 10:59 - Assessment and plan (1) Nausea & vomiting Status: Acute Assessment and plan: Complaining of abdominal pain ongoing for 2 weeks 1 month of nausea and emesis Does have history of GERD, no recent EGD report EGD years ago with finding of gastritis Does have diabetes with previous A1c on 04/09/19 noted to be 10.1; on oral agents as well as short acting insulin at home Nausea and emesis could be secondary to gastroparesis versus gastritis Keep nothing by mouth at this time plan for EGD today EGD showed diffuse gastritis and duodenitis Additionally appears to have gastroparesis Unable to perform biopsies given desaturation during EGD Recommend sleep study Continue antiemetics Would recommend stopping NSAIDs Qualifiers: Vomiting type: unspecified Vomiting Intractability: unspecified Qualified Code(s): R11.2 - Nausea with vomiting, unspecified - Time Spent With Patient Total time spent is greater than 50% in coordination of care (as documented) at patient's floor/unit and/or counseling patient: GI History of Present Illness - Data of Consult Requesting Physician: Carl Echevarria MD - Consult Narrative History of present illness: Ms. Mayberry is a 53 year old female with past medical history COPD, diabetes, GERD, hyperlipidemia, hypertension who presented to the ED complaining of nausea and emesis ongoing for 1 month. She reports about 4-5 episodes of emesis that occurs after eating. She is a poor historian and information is obtained from chart review as well as discussion with the patient. She is complaining of epigastric abdominal pain ongoing for 2 months with progression to nausea one month ago as well as emesis. She is reporting regular bowel movements, states she has 3 bowel movements a week. She denies emesis after drinking water reports it only occurs after eating food. She reports years ago had an EGD at outside facility which showed gastritis and takes PPI at home. At this time she is denying any fever, chills, chest pain, shortness of breath does report epigastric pain reproducible upon palpation as well as nausea. Past Med Surg Social Fam HX - Past Medical History Medical history: COPD, diabetes, GERD, hyperlipidemia, hypertension, other Additional medical history: BLADDER STIMULATOR Psychiatric history: depression - Past Surgical History Surgical History: appendectomy Additional surgical history: BLADDER STIMULATOR - Social History Smoking Status: Current every day smoker Smokeless Tobacco Status: No Alcohol use: rarely Drug use: none - Family History Mother Hx Family Endocrine Disorder: Yes - Gastrointestinal Gastrointestinal: Present: abdominal pain (epigastric), nausea, vomiting. Absent: diarrhea - EENT Nose, mouth and throat: Absent: dysphagia, sore throat - Cardiovascular Cardiovascular ROS: Absent: chest pain, palpitations - Respiratory Respiratory IM: Absent: cough, dyspnea, wheezing - Genitourinary Genitourinary: Absent: change in color, Urinary frequency - Neurological ROS Neurological GI: Absent: confusion, frequent falls, headache(s) - Hematologic/Lymphatic Hematologic/Lymphatic pediatric: Absent: easy bleeding - Integumentary Integumentary GI: Absent: pruritis, rash - Constitutional Vitals: Temp Pulse Resp BP Pulse Ox 98.2 F 98 18 112/66 95 03/11/19 08:09 03/11/19 08:09 03/11/19 08:09 03/11/19 08:09 03/11/19 08:09 - Head Head exam: Present: atraumatic, normal inspection - Eye Eye exam: Present: EOMI, sclera anicteric. Absent: conjunctival injection - ENT ENT exam: Present: mucous membranes moist, normal oropharynx - Neck Neck exam general surgery: Present: full ROM, trachea midline. Absent: tenderness - Respiratory Respiratory exam: Present: CTAB. Absent: rhonchi, wheezes - Cardiovascular Cardiovascular exam: Present: RRR, +S1, +S2 - GI/Abdominal GI/Abdominal exam: Present: normal bowel sounds, soft, tenderness (epigastric). Absent: firm - Skin Skin exam: Present: dry, intact Results - Labs CBC & Chem 7: 03/11/19 04:59 03/11/19 04:59 Labs: Last Result 03/11/19 03/11/19 04:59 06:00 Calcium 8.1 L Urine Opiates Screen Positive H Entire Visit 03/11/19 04:59 Hgb 13.8 D Hct 43.9 - ABG ABG results: ABG ABG pH 7.43 pH Units (7.32-7.45) 03/11/19 05:44 ABG pCO2 42 mmHg (35-45) 03/11/19 05:44 ABG pO2 99 mmHg (85-104) 03/11/19 05:44 ABG O2 Saturation 98 % (95-98) 03/11/19 05:44 - Impressions Impressions Abdomen/Pelvis CT 03/10/19 15:17 IMPRESSION: 1. No evidence of pulmonary embolic disease. 2. No acute pulmonary findings. 3. No acute findings within the abdomen or pelvis. No CT evidence of appendicitis. 4. Mild thickening of the bladder wall, similar to previous imaging studies. Findings may be secondary to a cystitis. D/ / 03/10/2019 18:31:12 Myles Dave MD / rhea Interpreting Provider: Myles Dave MD Chest X-Ray 03/10/19 15:40 IMPRESSION: No acute process. D/ / Zeferino Goyal MD / Zeferino Goyal MD Interpreting Provider: Zeferino Goyal MD Chest CTA 03/10/19 17:07 IMPRESSION: 1. No evidence of pulmonary embolic disease. 2. No acute pulmonary findings. 3. No acute findings within the abdomen or pelvis. No CT evidence of appendicitis. 4. Mild thickening of the bladder wall, similar to previous imaging studies. Findings may be secondary to a cystitis. D/ / 03/10/2019 18:31:12 Myles Dave MD / rhea Interpreting Provider: Myles Dave MD Gallbladder Ultrasound 03/11/19 09:00 IMPRESSION: Somewhat distended gallbladder without stones or wall thickening. No biliary dilatation. D/ / Yoni Patricia / Yoni Patricia Interpreting Provider: Yoni Patricia Consult Discharge Plan - Plan Referrals: Orly Mathews MD [Partnered Physician] - Geoffrey Mayberry DO [Primary Care Provider] - Prescriptions: Sucralfate [Carafate] 1 gm PO QIDA #120 tablet Budesonide/Formoterol 160/4.5 [Symbicort 160/4.5] 1 puff IH BIDR #1 [email or web address] <Torres James - Last Filed: 04/04/19 05:22> Date of Encounter: 03/11/19 - Time Spent With Patient Total time spent is greater than 50% in coordination of care (as documented) at patient's floor/unit and/or counseling patient: GI History of Present Illness - Data of Consult Requesting Physician: Malissa Adhikari MD - Consult Narrative History of present illness: Ms. Mayberry is a 53 year old female - Constitutional Vitals: Temp Pulse Resp BP Pulse Ox 98.3 F 77 16 135/79 99 03/15/19 11:40 03/15/19 11:40 03/15/19 11:40 03/15/19 11:40 03/15/19 11:40 Results - Labs CBC & Chem 7: 03/11/19 04:59 03/15/19 01:38 - ABG ABG results: ABG ABG pH 7.43 pH Units (7.32-7.45) 03/11/19 05:44 ABG pCO2 42 mmHg (35-45) 03/11/19 05:44 ABG pO2 99 mmHg (85-104) 03/11/19 05:44 ABG O2 Saturation 98 % (95-98) 03/11/19 05:44 - Attending Attestation Agree with assessment. Avoid NSAIDs. Suspect gastroparesis. Plan EGD and make further recommendations. I examined this patient and my medical decision-making was reviewed with the Resident Physician. I agree with the documented findings, disposition and t reatment plan as described except to the extent set forth below.
[2019-03-11] MEDS ORDERED: *HR* Propofol 200 MG/20 ML VIAL IVP ONE (13:16)
[2019-03-11] MEDS ORDERED: Lidocaine -MPF 2% 2 ML VIAL ONE (13:16)
--- NOTE | 2019-03-11 14:03 | Anesthesia Evaluation PreOp ---
Date of Encounter: 03/11/19 Time of Encounter: 14:00 - Past History Planned Operation: EGD Cardiac History: HTN, Hyperlipidemia Pulmonary History: Smoker, COPD Other Medical History: Renal (has bladder stimulator), Diabetes Type II, GERD, Other (admitted with intractable nausea and vomiting/abdominal pain for two months) Anesthesia History: No Prior Anesthetic Complications, Past Anesthesia (Has had prior EGD) Alcohol Use: rarely Drug use: none Medications and Allergies Glimepiride [Amaryl] 2 mg PO 0800 04/11/17 [History] Insulin ASPART [Novolog Flexpen] 25 unit SQ TID 01/21/19 [History] Dulaglutide [Trulicity] 0.75 mg SQ HS 02/27/19 [History] FLUoxetine HCl [Prozac] 40 mg PO DAILY 02/27/19 [History] Fenofibrate [Tricor] 54 mg PO DAILY 02/27/19 [History] Fluticasone Propionate Nasal [Flonase] 50 mcg NS DAILY 02/27/19 [History] Gabapentin [Neurontin] 200 mg PO TID 02/27/19 [History] HYDROcodone/Acet 5/325 mg [[place] 5-325 mg] 1 tab PO Q4H PRN 3 Days #14 tab 02/27/19 [Rx] Insulin ASPART [Novolog] 25 units SQ TIDAC 02/27/19 [History] Loratadine [Claritin] 10 mg PO DAILY 02/27/19 [History] Lurasidone HCl [Latuda] 80 mg PO DAILY 02/27/19 [History] Nystatin POWDER [Nystop] 1 appl TP BID 02/27/19 [History] Omeprazole [PriLOSEC] 20 mg PO DAILY 02/27/19 [History] Ondansetron ODT [Zofran ODT] 4 mg SL Q6HR #10 tab.rapdis 02/27/19 [Rx] Oxybutynin Chloride [Ditropan XL] 10 mg PO DAILY 02/27/19 [History] Trospium Chloride 20 mg PO HS 02/27/19 [History] risperiDONE [RisperDAL] 3 mg PO DAILY 02/27/19 [History] Alogliptin Benzoate [Alogliptin] 25 mg PO DAILY 03/02/19 [History] Atorvastatin [Lipitor] 80 mg PO HS 03/02/19 [History] Ciprofloxacin HCl [Cipro] 500 mg PO BID 03/02/19 [History] Furosemide [Lasix] 40 mg PO DAILY 03/02/19 [History] Lisinopril [Zestril] 5 mg PO DAILY 03/02/19 [History] Ondansetron HCl [Zofran] 4 mg PO Q8HR PRN 03/02/19 [History] Potassium Chloride [Klor-Con 10] 10 meq PO DAILY 03/02/19 [History] Promethazine [Phenergan] 25 mg PO Q6HR 03/02/19 [History] metFORMIN [Glucophage] 1,000 mg PO BIDWM 03/02/19 [History] Allergy/AdvReac Type Severity Reaction Status Date / Time No Known Allergies Allergy Verified 03/02/19 14:58 - Meds/Allergy Pre-op Review Medications Reviewed: Yes Allergies Reviewed: Yes Beta Blockers on Current Med List: No Anesthesia Results - Labs 03/11/19 04:59 03/11/19 04:59 Anesthesia Exam Selected Entries 03/11/19 13:47 Temperature 98.8 F Pulse Rate 83 Respiratory Rate 18 Blood Pressure 152/67 O2 Sat by Pulse Oximetry 93 Weight: 80 kg BMI 35 NPO (# of Hours): over 8 hours - HEENT Mallampati: II Teeth: Poor dentition Oral Opening: Greater than 3 - Cardiac Rhythm: Regular Murmur: None - Pulmonary Breath Sounds: bilateral Clear Respiratory Effort: Labored (slight tachypnea, on 2L O2.) Anesthesia Assess/Plan ASA Score: 3 Level of consciousness: Oriented (Patient is a terrible historian, she has multiple co morbidities and is non compliant with medical therapy both at home and here in the hospital. She states she has had EGDs before and is familiar with procedure. Will proceed under MAC) Anesthetic Plan: MAC Monitoring Plan: Standard Monitors Recovery Plan: Other
--- NOTE | 2019-03-11 15:27 | Internal Med Progress Note ---
Hospitalist Progress Note - Encounter Date of Encounter: 03/11/19 Time of Encounter: 15:23 - Subjective Interval History: Ms. Mayberry is a 53 year old female with past medical history of type 2 diabetes, morbid obesity and COPD pt presented to the ED for intractable nausea and vomiting. She was in the hospital and started her on symptomatic and supportive care. She denied any CP / SOB. . She did go for endoscopy, during EGD she happened to have severe hypoxia with Spo2 in 50's. - Exam Vitals: Temp Pulse Resp BP Pulse Ox 98.8 F 83 18 152/67 93 03/11/19 13:47 03/11/19 13:47 03/11/19 13:47 03/11/19 13:47 03/11/19 13:47 Exam: Gen: Alert, awake, Oriented to time,place and person Chest: Diminished breath sounds B/L, mild wheezing, No crackles, No rales Heart: S1S2+ RRR No murmurs Abd: Soft, NT, BS +, No organomegaly Ext: No edema, pulses are palpable, No calf tenderness Neuro : No acute focal neuro deficits noticed Skin: No rash. - Assessment and Plan (1) Acute esophagitis Current Visit: Yes Status: Acute Assessment and Plan: s/p EGD showed severe esophagitis.. Mostly induced by NSAIDS counseled to stay off NSAIDS on PPI + Carafate (2) Abdominal pain Current Visit: Yes Status: Acute Assessment and Plan: as above (3) Acute respiratory failure with hypoxia Current Visit: Yes Status: Acute Assessment and Plan: Due to hypoventilation syndrome and obstructive sleep apnea also concerning for possible COPD exacerbation continue on oxygen. Try to wean her off the oxygen as she tolerates need home O2 eval and overnight pulse ox a study started on frequent bronchodilators therapy consulted pulmonary for further evaluation, as well as for outpatient follow-up (4) Hypoventilation syndrome Current Visit: Yes Status: Acute Assessment and Plan: care as above counseled to loose weight Need out pt sleep studies (5) Morbid obesity Current Visit: Yes Status: Acute (6) COPD (chronic obstructive pulmonary disease) Current Visit: Yes Status: Acute Assessment and Plan: She is an mild exacerbation no need of systemic steroids started her on frequent bronchodilator therapy no need of abx.. No signs of inf continue close monitoring (7) Hypertension Current Visit: Yes Status: Acute Assessment and Plan: Stable blood pressure for now - Time Spent with Patient Total time spent is greater than 50% in coordination of care (as documented) at patient's floor/unit and/or counseling patient: Internal Medicine: Result - Labs CBC & Chem 7: 03/11/19 04:59 03/11/19 04:59 Labs: Short CBC 03/10/19 03/11/19 Range/Units 15:35 04:59 WBC 8.7 9.8 (4.3-11.1) K/mcL Hgb 15.6 H 13.8 D (11.5-15.4) g/dL Hct 48.5 H 43.9 (35.3-44.9) % Plt Count 194 184 (140-400) K/mcL Neutrophils # 5.9 7.5 (1.6-8.9) K/mcL BMP 03/10/19 03/11/19 15:35 04:59 Sodium 132 L 136 Potassium 2.8 L 3.4 L Chloride 92 L 98 Carbon Dioxide 28 27 BUN 12 9 Creatinine 0.89 0.82 Glucose 301 H 157 H Calcium 8.9 8.1 L Cardiac Enzymes 03/10/19 03/10/19 Range/Units 15:35 22:00 Troponin I 0.03 < 0.03 (< 0.04) ng/mL Liver Function 03/10/19 Range/Units 15:35 Total Bilirubin 1.0 (0.3-1.0) mg/dL AST 18 (13-39) Units/L ALT 19 (7-52) Units/L Alkaline Phosphatase 68 (34-104) Units/L Albumin 4.0 (3.5-5.7) g/dL Urine 03/10/19 Range/Units 15:19 Urine Color Yellow (Yellow) Urine Clarity Turbid A (Clear) Urine pH 5.0 (5.0-8.0) pH Units Ur Specific Abie 1.017 (1.010-1.025) Urine Protein Trace (Neg-Trace) mg/dL Urine Glucose (UA) Normal (Normal) mg/dL - ABG Interpretation ABG results: ABG ABG pH 7.43 pH Units (7.32-7.45) 03/11/19 05:44 ABG pCO2 42 mmHg (35-45) 03/11/19 05:44 ABG pO2 99 mmHg (85-104) 03/11/19 05:44 ABG O2 Saturation 98 % (95-98) 03/11/19 05:44 - Impressions Impressions Abdomen/Pelvis CT 03/10/19 15:17 IMPRESSION: 1. No evidence of pulmonary embolic disease. 2. No acute pulmonary findings. 3. No acute findings within the abdomen or pelvis. No CT evidence of appendicitis. 4. Mild thickening of the bladder wall, similar to previous imaging studies. Findings may be secondary to a cystitis. D/ / 03/10/2019 18:31:12 Myles Dave MD / rhea Interpreting Provider: Myles Dave MD Chest X-Ray 03/10/19 15:40 IMPRESSION: No acute process. D/ / Zeferino Goyal MD / Zeferino Goyal MD Interpreting Provider: Zeferino Goyal MD Chest CTA 03/10/19 17:07 IMPRESSION: 1. No evidence of pulmonary embolic disease. 2. No acute pulmonary findings. 3. No acute findings within the abdomen or pelvis. No CT evidence of appendicitis. 4. Mild thickening of the bladder wall, similar to previous imaging studies. Findings may be secondary to a cystitis. D/ / 03/10/2019 18:31:12 Myles Dave MD / rhea Interpreting Provider: Myles Dave MD Gallbladder Ultrasound 03/11/19 09:00 IMPRESSION: Somewhat distended gallbladder without stones or wall thickening. No biliary dilatation. D/ / Yoni Patricia / Yoni Patricia Interpreting Provider: Yoni Patricia Consult Discharge Plan - Plan Referrals: Geoffrey Mayberry, DO [Primary Care Provider] - (2) Abdominal pain Qualifiers: Abdominal location: epigastric Qualified Code(s): R10.13 - Epigastric pain (7) Hypertension Qualifiers: Hypertension type: essential hypertension Qualified Code(s): I10 - Essential (primary) hypertension
--- NOTE | 2019-03-11 16:01 | Electrocardiograph Report ---
[place] [id number] Test Date: 2019-03-10 Pat Name: Alexus Mayberry Department: [id number] Room: 3B41 Gender: F Thread Dresser: : 1965 Requested By: Joel Rollins Order Number: [id number] Reading MD: Zeferino Pavon Measurements Intervals Leigh Rate: 71 P: 0 AR: 135 QRS: 85 QRSD: 119 T: -62 QT: 413 QTc: 416 Interpretive Statements Significant artifact complicates interpretation Probable sinus rhythm Recommend repeat ECG Electronically Signed On 03-11-2019 16:00:05 EDT by Zeferino Pavon
[2019-03-11] MEDS: Ipratropium/Albuterol Neb 3 ML IH SCH ×3 (16:03→23:39)
--- NOTE | 2019-03-11 16:26 | Pulmonology Consult Note ---
<AlmaKt M - Last Filed: 03/11/19 17:21> Date of Encounter: 03/11/19 Time of Encounter: 15:00 Assessment and Plan (1) Acute respiratory failure with hypoxia Current Visit: Yes Status: Acute Presented to ED for abdominal complaints, found to be hypoxic Patient has been desatting sporadically during hospital course Today SpO2 dropped to 50's during EGD Currently requiring 3L NC to maintain SpO2 greater than 88% Patient does require 2L O2 at home, only at night Initial ABG showed respiratory alkalosis with hypochloremic metabolic alkalosis, rpt ABG normal Patient does not appear to be a chronic CO2 retainer per review of records Likely V/q mismatch, etiology likely CV related, patient takes daily lasix, suspect baseline Diastolic Dysfunction Severe LEROY likely contributing as well, patient did exhibit two bouts of apnea during my encounter prior to being woken up Plan: -Echo/BNP, will increase diuresis as well -2L fluid restriction, salt restriction -CPAP at night -Continue Bronchodilators and attempt to wean off O2 as tolerated -Patient will need outpatient Sleep Study, will attempt to coordinate priority scheduling d/t severity (2) COPD (chronic obstructive pulmonary disease) Current Visit: Yes Status: Acute Patient has a history of COPD -Unknown severity, no PFT's on file -2/2 tobacco abuse, 42 pack-year history -On 2L O2 HS -Compliant with inhalers, Advair and Albuterol -No recent cough, wheeze, sputum production -Not in acute exacerbation currently Plan: -Continue with Duonebs Q4hrs -Agree with no systemic steroids/ABX -Follow up O/P with Pulm for PFT Qualifiers: Emphysema type: unspecified Qualified Code(s): J43.9 - Emphysema, unspecified (3) Obesity hypoventilation syndrome Current Visit: Yes Status: Acute Morbidly Obese, counseled on weight loss History of Present Illness Consult date: 03/11/19 Reason for consult: hypoxemia Chief complaint: Abdominal pain History of present illness: Mrs. Mayberry is a 53-year-old female with past medical history of uncontrolled diabetes, GERD, hyperlipidemia, hypertension, schizophrenia and COPD who is currently admitted due to several day history of intractable nausea/vomiting in addition a two-month history of vague abdominal pain. Pulmonology was consulted d/t the patient SpO2 dropping into the 50's during EGD. The patient was hypoxic in the ED as well prior to admission requiring 2L O2. Patient is a poor historian but she does admit to having supplemental oxygen at home. She states she only uses it at night and does not require it during the day. She is a current every day 1ppd smoker, 42 pack-year history. She admits to a history of COPD and states that she has had PFT performed outpatient in the past, however this is not available on [facility] for review. The patient denies any recent cough, wheezing, increasing sputum production, fever/chills, but does admit to dyspnea on exertion worse than usual. Patient denies ever having performed a sleep study. She is not on CPAP/BiPap at home. She admits to feeling unrested when she wakes in the morning, to increased fatigue and to reports from her significant other that she does experience bouts of apnea at night. On my examination, the patients vitals are significant for RR SpO2 84% on 3L NC. She is currently resting comfortably in bed. Her breathing is labored, irregul ar, and sonorous with at least two bouts of apnea noted. Her lungs exhibit diffuse rhonchi and overall course breath sounds, no crackles. The patient is morbidly obese on exam but no signs of fluid overload. Her laboratory workup reveals an initial hypocapnic respiratory alkalosis with additional hy pochloremic metabolic alkalosis, both of which resolved as of today. CXR and CTA chest were negative for any acute pulmonary findings. Past Med Surg Social Fam HX - Past Medical History Medical history: COPD, diabetes, GERD, hyperlipidemia, hypertension, other Additional medical history: BLADDER STIMULATOR Psychiatric history: depression - Past Surgical History Surgical History: appendectomy Additional surgical history: BLADDER STIMULATOR - Social History Smoking Status: Current every day smoker Smokeless Tobacco Status: No Alcohol use: rarely Drug use: none - Family History Mother Hx Family Endocrine Disorder: Yes Medications and Allergies Glimepiride [Amaryl] 2 mg PO 0800 04/11/17 [History] FLUoxetine HCl [Prozac] 40 mg PO DAILY 02/27/19 [History] Fenofibrate [Tricor] 54 mg PO DAILY 02/27/19 [History] Fluticasone Propionate Nasal [Flonase] 50 mcg NS DAILY 02/27/19 [History] HYDROcodone/Acet 5/325 mg [[place] 5-325 mg] 1 tab PO Q4H PRN 3 Days #14 tab 02/27/19 [Rx] Insulin ASPART [Novolog] 0 units SQ TIDAC 02/27/19 [History] Loratadine [Claritin] 10 mg PO DAILY 02/27/19 [History] Lurasidone HCl [Latuda] 80 mg PO DAILY 02/27/19 [History] Ondansetron ODT [Zofran ODT] 4 mg SL Q6HR #10 tab.rapdis 02/27/19 [Rx] Oxybutynin Chloride [Ditropan XL] 10 mg PO DAILY 02/27/19 [History] Alogliptin Benzoate [Alogliptin] 25 mg PO DAILY 03/02/19 [History] Atorvastatin [Lipitor] 80 mg PO HS 03/02/19 [History] Furosemide [Lasix] 40 mg PO BID 03/02/19 [History] Lisinopril [Zestril] 5 mg PO DAILY 03/02/19 [History] Potassium Chloride [Klor-Con 10] 10 meq PO DAILY 03/02/19 [History] Promethazine [Phenergan] 25 mg PO Q6HR 03/02/19 [History] Dexlansoprazole [Dexilant] 30 mg PO DAILY 03/11/19 [History] Fluticasone Propion/Salmeterol [Fluticasone-Salmeterol 100-50] 1 puff PO BID 03/11/19 [History] Insulin Degludec [Tresiba Flextouch U-100] 50 units SQ HS 03/11/19 [History] Metformin HCl [Glucophage] 1,000 mg PO BID 03/11/19 [History] Omeprazole [PriLOSEC] 40 mg PO DAILY 03/11/19 [History] Polyethylene Glycol 3350 [MiraLax bowel prep] 17 gm PO DAILY 03/11/19 [History] Allergy/AdvReac Type Severity Reaction Status Date / Time No Known Allergies Allergy Verified 03/11/19 15:07 All Systems: The remainder of the systems were reviewed and are negative Physical Examination Vital Signs: Vital Signs, Last 4 Hours Temp Pulse Resp BP Pulse Ox 03/11/19 15:34 98.3 F 89 9 131/60 03/11/19 13:47 98.8 F 83 18 152/67 93 Gen.: Resting comfortably. Obese. Vitals noted. Head: Atraumatic, normocephalic Eyes: Anicteric sclerae, EOMI ENT: Mucous membranes dry, oropharynx clear Neck: Mallampati 4 CV: RRR, no murmurs Resp: B/L rhonchi appreciated, no crackles, mild labored breathing, course breath sounds Abd: soft, mildly tender RUQ Ext: no peripheral edema Results - Laboratory Findings CBC and BMP: 03/11/19 04:59 03/11/19 04:59 ABG ABG pH 7.43 pH Units (7.32-7.45) 03/11/19 05:44 ABG pCO2 42 mmHg (35-45) 03/11/19 05:44 ABG pO2 99 mmHg (85-104) 03/11/19 05:44 ABG O2 Saturation 98 % (95-98) 03/11/19 05:44 Abnormal lab findings: Abnormal lab results RBC 5.31 M/mcL (3.82-4.97) H 03/11/19 04:59 Hgb 15.6 g/dL (11.5-15.4) H 03/10/19 15:35 Hct 48.5 % (35.3-44.9) H 03/10/19 15:35 MCV 82.7 fL (83.0-100.0) L 03/11/19 04:59 MCH 26.0 pg (28.0-33.3) L 03/11/19 04:59 MCHC 31.4 g/dL (31.6-35.5) L 03/11/19 04:59 RDW 15.9 % (11.5-14.5) H 03/11/19 04:59 MPV 13.3 fL (9.4-12.4) H 03/11/19 04:59 Immature Plt Fraction 12.2 % (1.1-6.1) H 03/10/19 15:35 ABG pH 7.60 pH Units (7.32-7.45) H* 03/10/19 22:08 ABG pCO2 23 mmHg (35-45) L 03/10/19 22:08 ABG pO2 72 mmHg (85-104) L 03/10/19 22:08 ABG HCO3 28 mEq/L (21-27) H 03/11/19 05:44 ABG Total CO2 29 mEq/L (20-26) H 03/11/19 05:44 Sodium 132 mEq/L (136-145) L 03/10/19 15:35 Potassium 3.4 mEq/L (3.5-5.1) L 03/11/19 04:59 Chloride 92 mEq/L (98-107) L 03/10/19 15:35 Glucose 157 mg/dL (70-105) H 03/11/19 04:59 Hemoglobin A1c 10.1 % (-5.6) H 03/10/19 22:00 Calcium 8.1 mg/dL (8.6-10.3) L 03/11/19 04:59 Phosphorus 2.3 mg/dL (2.7-4.5) L 03/11/19 04:59 Magnesium 1.1 mg/dL (1.6-2.6) L 03/11/19 04:59 Urine Clarity Turbid (Clear) A 03/10/19 15:19 Ur Leukocyte Esterase Small (Negative) H 03/10/19 15:19 Urine Microscopic RBC 3-5 per hpf (0-3) H 03/10/19 15:19 Urine Microscopic WBC 15-30 per hpf (0-3) H 03/10/19 15:19 Ur Squamous Epith Cells Many per lpf (None-Few) H 03/10/19 15:19 Urine Bacteria Moderate per hpf (None-Few) H 03/10/19 15:19 Ur Culture Indicated? YES (NO) A 03/10/19 15:19 Urine Opiates Screen Positive ng/mL (Bkchwt=639) H 03/11/19 06:00 - Microbiology Findings Microbiology Findings: Microbiology, Last 48 Hours 03/10/19 15:19 Urine Culture - Final Urine,Clean Catch No significant growth. - Clinical Findings Intake & Output: Intake & Output 03/11/19 03/11/19 03/11/19 07:59 15:59 23:59 Intake Total 500 / 510 10 510 Output Total 200 / 200 Balance 300 / 310 10 310 Weight 80.4 kg Consult Discharge Plan - Plan Referrals: Geoffrey Mayberry, DO [Primary Care Provider] - <Orly Mathews - Last Filed: 03/11/19 22:49> Date of Encounter: 03/11/19 All Systems: The remainder of the systems were reviewed and are negative Physical Examination Vital Signs: Vital Signs, Last 4 Hours Temp Pulse Resp BP Pulse Ox 03/11/19 20:46 18 96 03/11/19 19:16 98.1 F 81 16 156/72 91 Results - Laboratory Findings CBC and BMP: 03/11/19 04:59 03/11/19 04:59 ABG ABG pH 7.43 pH Units (7.32-7.45) 03/11/19 05:44 ABG pCO2 42 mmHg (35-45) 03/11/19 05:44 ABG pO2 99 mmHg (85-104) 03/11/19 05:44 ABG O2 Saturation 98 % (95-98) 03/11/19 05:44 Abnormal lab findings: Abnormal lab results RBC 5.31 M/mcL (3.82-4.97) H 03/11/19 04:59 Hgb 15.6 g/dL (11.5-15.4) H 03/10/19 15:35 Hct 48.5 % (35.3-44.9) H 03/10/19 15:35 MCV 82.7 fL (83.0-100.0) L 03/11/19 04:59 MCH 26.0 pg (28.0-33.3) L 03/11/19 04:59 MCHC 31.4 g/dL (31.6-35.5) L 03/11/19 04:59 RDW 15.9 % (11.5-14.5) H 03/11/19 04:59 MPV 13.3 fL (9.4-12.4) H 03/11/19 04:59 Immature Plt Fraction 12.2 % (1.1-6.1) H 03/10/19 15:35 ABG pH 7.60 pH Units (7.32-7.45) H* 03/10/19 22:08 ABG pCO2 23 mmHg (35-45) L 03/10/19 22:08 ABG pO2 72 mmHg (85-104) L 03/10/19 22:08 ABG HCO3 28 mEq/L (21-27) H 03/11/19 05:44 ABG Total CO2 29 mEq/L (20-26) H 03/11/19 05:44 Sodium 132 mEq/L (136-145) L 03/10/19 15:35 Potassium 3.4 mEq/L (3.5-5.1) L 03/11/19 04:59 Chloride 92 mEq/L (98-107) L 03/10/19 15:35 Glucose 157 mg/dL (70-105) H 03/11/19 04:59 POC Glucose 145 mg/dL (70-99) H 03/11/19 16:27 Hemoglobin A1c 10.1 % (-5.6) H 03/10/19 22:00 Calcium 8.1 mg/dL (8.6-10.3) L 03/11/19 04:59 Phosphorus 2.3 mg/dL (2.7-4.5) L 03/11/19 04:59 Magnesium 1.1 mg/dL (1.6-2.6) L 03/11/19 04:59 B-Natriuretic Peptide 364 pg/mL (Less than 100) H 03/11/19 17:58 Urine Clarity Turbid (Clear) A 03/10/19 15:19 Ur Leukocyte Esterase Small (Negative) H 03/10/19 15:19 Urine Microscopic RBC 3-5 per hpf (0-3) H 03/10/19 15:19 Urine Microscopic WBC 15-30 per hpf (0-3) H 03/10/19 15:19 Ur Squamous Epith Cells Many per lpf (None-Few) H 03/10/19 15:19 Urine Bacteria Moderate per hpf (None-Few) H 03/10/19 15:19 Ur Culture Indicated? YES (NO) A 03/10/19 15:19 Urine Opiates Screen Positive ng/mL (Axrumk=202) H 03/11/19 06:00 - Microbiology Findings Microbiology Findings: Microbiology, Last 48 Hours 03/10/19 15:19 Urine Culture - Final Urine,Clean Catch No significant growth. - Clinical Findings Intake & Output: Intake & Output 03/11/19 03/11/19 03/11/19 07:59 15:59 23:59 Intake Total 500 / 1230 10 / 1230 720 / 1230 Output Total 200 / 200 Balance 300 / 1030 10 / 1030 720 / 1030 Weight 80.4 kg - Attending Attestation I saw and evaluated this patient and my medical decision-making was reviewed with the Resident Physician. I agree with the documented findings, disposition and treatment plan as described except to the extent set forth below. We independently had [id number] contact with the patient Patient seen and examined at bedside Labs, radiology, chart personally reviewed. Patient with acute hypoxic respiratory failure patient has significant the PND and orthopnea. Chest shows possible early COPD with small airway disease agree with bronchodilators. Current presentation more look like and diastolic heart failure with elevated BNP pending echocardiogram and increase the diuresis 40 mg IV twice a day to follow electrolytes and hemodynamic stability. Salt water restriction was counseled patient will need outpatient pulmonary function tests suspect she will have both mixed obstructive and restrictive ventilatory impairment. Patient is clinically has symptoms of severe sleep disorder breathing patient will need an urgent sleep study within 1 week of discharge. Please schedule an appointment with them to 3 days after discharge so we cannot do the sleep study. Before that patient will need adequate diuresis for evaluation of sleep disorder breathing and therapy with titration.
[2019-03-11] MEDS: Sucralfate 1 GM TABLET PO SCH ×2 (16:30→22:46)
[2019-03-11] MEDS: Furosemide 40 MG/4 ML VIAL IVP SCH (20:28)
[2019-03-11] MEDS ORDERED: Perflutren Lipid Microsphere 1.3 ML in 0.9 % Sodium Chloride 8.7 ML IVP ONE (22:43)
[2019-03-12] MEDS: Ipratropium/Albuterol Neb 3 ML IH SCH ×6 (04:22→23:28)
[2019-03-12] MEDS: 0.9 % Sodium Chloride 1,000 ML IVC SCH ×2 (04:25→19:33)
[2019-03-12] MEDS: Gabapentin 100 MG CAPSULE PO SCH ×3 (08:43→21:00)
[2019-03-12] MEDS: Insulin LISPRO 300 UNITS/3 ML VIAL SQ SCH ×4 (08:43→19:59)
[2019-03-12] MEDS: Sucralfate 1 GM TABLET PO SCH ×4 (08:43→21:00)
[2019-03-12] MEDS: Furosemide 40 MG/4 ML VIAL IVP SCH ×2 (08:44→18:03)
--- NOTE | 2019-03-12 08:57 | Psychiatry Progress Note ---
Date of Encounter: 03/12/19 Time of Encounter: 08:57 Subjective Interval history: Ms. Mayberry was seen and evaluated at the bedside this morning. She endorses that she is feeling better today, and denies any new complaints or concerns. She reports that she is in the care of a mental health professional for management of her depression, and states that her symptoms are well-controlled with her current medication regimen. Nursing staff reports no significant overnight events. Review of Systems Neurological: Denies: headache, weakness, numbness, memory loss Psychiatric: Reports: depression. Denies: anxiety, auditory hallucinations, visual hallucinations Results - Vital Signs Vital Signs: Temp Pulse Resp BP Pulse Ox 98.0 F 78 16 148/80 97 03/12/19 08:35 03/12/19 08:35 03/12/19 08:35 03/12/19 08:35 03/12/19 08:35 - Labs Labs: Laboratory Results - last 24 hr 03/10/19 03/10/19 03/11/19 20:53 22:00 06:00 POC Glucose 117 H Est Mean Plasma Glucose 243 Hemoglobin A1c 10.1 H B-Natriuretic Peptide Ur Buprenorphine Scrn Negative 03/11/19 03/11/19 03/11/19 07:26 11:29 15:34 POC Glucose 119 H 130 H 149 H Est Mean Plasma Glucose Hemoglobin A1c B-Natriuretic Peptide Ur Buprenorphine Scrn 03/11/19 03/11/19 03/11/19 16:27 17:58 20:14 POC Glucose 145 H 296 H Est Mean Plasma Glucose Hemoglobin A1c B-Natriuretic Peptide 364 H Ur Buprenorphine Scrn - Impressions ITS Impressions Abdomen/Pelvis CT 03/10/19 15:17 IMPRESSION: 1. No evidence of pulmonary embolic disease. 2. No acute pulmonary findings. 3. No acute findings within the abdomen or pelvis. No CT evidence of appendicitis. 4. Mild thickening of the bladder wall, similar to previous imaging studies. Findings may be secondary to a cystitis. D/ / 03/10/2019 18:31:12 Myles Dave MD / rhea Interpreting Provider: Myles Dave MD Chest X-Ray 03/10/19 15:40 IMPRESSION: No acute process. D/ / Zeferino Goyal MD / Zeferino Goyal MD Interpreting Provider: Zeferino Goyal MD Chest CTA 03/10/19 17:07 IMPRESSION: 1. No evidence of pulmonary embolic disease. 2. No acute pulmonary findings. 3. No acute findings within the abdomen or pelvis. No CT evidence of appendicitis. 4. Mild thickening of the bladder wall, similar to previous imaging studies. Findings may be secondary to a cystitis. D/ / 03/10/2019 18:31:12 Myles Dave MD / rhea Interpreting Provider: Myles Dave MD Gallbladder Ultrasound 03/11/19 09:00 IMPRESSION: Somewhat distended gallbladder without stones or wall thickening. No biliary dilatation. D/ / Yoni Patricia / Yoni Patricia Interpreting Provider: Yoni Patricia Assessment and Plan (1) Altered mental status Current visit: Yes Status: Acute Additional Plan: Appears to be resolved. Suspect secondary to medical etiology. Nursing staff reports no overnight events. At this time, psychiatry will sign off. Qualifiers: Altered mental status type: unspecified Qualified Code(s): R41.82 - Altered mental status, unspecified Consult Discharge Plan - Plan Referrals: Geoffrey Mayberry DO [Primary Care Provider] - - Attending Attestation I examined this patient and my medical decision-making was reviewed with the Resident Physician. I agree with the documented findings, disposition and treatment plan as described except to the extent set forth below. She is doing well. Does not meet inpatient psychiatric criteria. Can continue her outpatient psychiatric medications and follow-up with outpatient. Psychiatry will sign off. Psychiatry Exam - Constitutional Vitals: Temp Pulse Resp BP Pulse Ox 98.0 F 78 16 148/80 97 03/12/19 08:35 03/12/19 08:35 03/12/19 08:35 03/12/19 08:35 03/12/19 08:35 General appearance: age & developmentally appropriate, disheveled - Musculoskeletal Strength & Tone: normal for patient (grossly normal on evaluation) - Psychiatric Patient Orientation: Yes Person, Yes Time, Yes Place Level of alertness: Alert Behavior: calm, cooperative Psychomotor activity: Normal Eye Contact: Maintains Eye Contact Mood Description: Euthymic/stable Affect description: congruent with mood, full range Speech Volume: Normal Speech pattern: normal rate, normal rhythm, normal tone, fluent, spontaneous Thought Content: No Suicidal ideation, No Homicidal ideation, No Overt delusions Perceptual Disturbances: No Auditory hallucinations, No Visual hallucinations
[2019-03-12 10:32] LABS: BUN/Creatinine Ratio 7 (6-26); Blood Urea Nitrogen 4 mg/dL (6-20); Calcium 7.7 mg/dL (8.6-10.3); Carbon Dioxide 32 mEq/L (23-29); Chloride 103 mEq/L (98-107); Glucose 205 mg/dL (70-105); Magnesium 1.3 mg/dL (1.6-2.6); Osmolality,Calculated 291 (280-300); Potassium 3.2 mEq/L (3.5-5.1); Sodium 139 mEq/L (136-145); eGFR For African Americans > 60 (> 60); eGFR For Non-African Americans > 60 (> 60)
--- NOTE | 2019-03-12 16:04 | Internal Med Progress Note ---
Hospitalist Progress Note - Encounter Date of Encounter: 03/12/19 Time of Encounter: 14:00 - Subjective Interval History: Patient was seen and examined bedside.. She denied any chest pain.. She still having shortness of breath/dyspnea on exertion. She is currently on 5 lit oxygen. Patient stated she does use oxygen home 2 L. - Exam Vitals: Temp Pulse Resp BP Pulse Ox 98.4 F 74 18 149/84 96 03/12/19 15:03/12/19 15:03/12/19 15:03/12/19 15:03/12/19 15:09 Exam: Gen: Alert, awake, Oriented to time,place and person Chest: Diminished breath sounds B/L, mild wheezing, crackles +, No rales Heart: S1S2+ RRR No murmurs Abd: Soft, NT, BS +, No organomegaly Ext: trace edema, pulses are palpable, No calf tenderness Neuro : No acute focal neuro deficits noticed Skin: No rash. - Assessment and Plan (1) Acute esophagitis Current Visit: Yes Status: Acute Assessment and Plan: s/p EGD showed severe esophagitis.. Mostly induced by NSAIDS counseled to stay off NSAIDS on PPI + Carafate (2) Abdominal pain Current Visit: Yes Status: Acute Assessment and Plan: as above (3) Acute diastolic CHF (congestive heart failure) Current Visit: Yes Status: Acute Assessment and Plan: She does have mild CHF exacerbation with elevated BNP Cont IV Lasix 40 BID Reviewed 2D echo showed preserved LVEF and mild diastolic dysfunction will start her on low-dose beta nora she does have hypokalemia will replace K + (4) Acute respiratory failure with hypoxia Current Visit: Yes Status: Acute Assessment and Plan: she does have acute on chronic hypoxic respiratory failure Due to hypoventilation syndrome and obstructive sleep apnea also concerning for possible COPD exacerbation continue on oxygen. Try to wean her off the oxygen as she tolerates need home O2 eval and overnight pulse oxy study cont frequent bronchodilators therapy appreciate [employer] principal recommendations (5) Hypoventilation syndrome Current Visit: Yes Status: Acute Assessment and Plan: care as above counseled to loose weight Need out pt sleep studies (6) Morbid obesity Current Visit: Yes Status: Acute (7) COPD (chronic obstructive pulmonary disease) Current Visit: Yes Status: Acute Assessment and Plan: She is an mild exacerbation no need of systemic steroids started her on frequent bronchodilator therapy no need of abx.. No signs of inf continue close monitoring (8) Hypertension Current Visit: Yes Status: Acute Assessment and Plan: Stable blood pressure for now - Time Spent with Patient Total time spent is greater than 50% in coordination of care (as documented) at patient's floor/unit and/or counseling patient: Internal Medicine: Result - Labs CBC & Chem 7: 03/11/19 04:59 03/12/19 09:39 Labs: BMP 03/12/19 09:39 Sodium 139 Potassium 3.2 L Chloride 103 Carbon Dioxide 32 H BUN 4 L Creatinine 0.59 L Glucose 205 H Calcium 7.7 L - ABG Interpretation ABG results: ABG ABG pH 7.43 pH Units (7.32-7.45) 03/11/19 05:44 ABG pCO2 42 mmHg (35-45) 03/11/19 05:44 ABG pO2 99 mmHg (85-104) 03/11/19 05:44 ABG O2 Saturation 98 % (95-98) 03/11/19 05:44 - Impressions Impressions Echocardiogram 03/11/19 16:57 Impressions: LVEF 65%. Mild concentric left ventricular hypertrophy. Mild left ventricular diastolic dysfunction. Moderately dilated right ventricle with moderate right ventricular hypokinesis. Mildly dilated right atrium. Mild tricuspid regurgitation. Mild pulmonary hypertension. Left Ventricular Wall Motion: Rest Echo Findings All wall segments showed normal motion. Findings: Study Quality * Technically adequate exam. ECG Findings * Sinus rhythm with PACs. Left Ventricle * LVEF 65%. * Normal LV chamber size and systolic function. * Mild concentric left ventricular hypertrophy. * Mild left ventricular diastolic dysfunction. * There is no LV thrombus. * Definity echo contrast was used. Right Ventricle * Moderately dilated right ventricle. * Moderate right ventricular hypokinesis. Left Atrium * Normal left atrial size. Right Atrium * Mildly dilated right atrium. Interatrial Septum * Interatrial septum not well evaluated. Aortic Valve * Trileaflet aortic valve. * Mildly calcified aortic valve leaflets. * No aortic stenosis. * No aortic regurgitation. Mitral Valve * Normal mitral valve structure. * No mitral stenosis. * Trace mitral regurgitation. Tricuspid Valve * Normal tricuspid valve structure. * No tricuspid stenosis. * Mild tricuspid regurgitation. * Estimated RVSP is 41 mmHg. * Estimated RA pressure is 8 mmHg. * Mild pulmonary hypertension. Pulmonic Valve * Pulmonic valve is not well visualized. * No pulmonic stenosis. * No pulmonic regurgitation. Aorta * Normally sized aortic root. Pericardium * The pericardium appears normal. IVC * The IVC is not dilated. * < 50% respiratory change. Consult Discharge Plan - Plan Referrals: Geoffrey Mayberry, DO [Primary Care Provider] - ___ (2) Abdominal pain Qualifiers: Abdominal location: epigastric Qualified Code(s): R10.13 - Epigastric pain (7) COPD (chronic obstructive pulmonary disease) Qualifiers: Emphysema type: unspecified Qualified Code(s): J43.9 - Emphysema, unspecified (8) Hypertension Qualifiers: Hypertension type: essential hypertension Qualified Code(s): I10 - Essential (primary) hypertension
[2019-03-13 03:06] LABS: BUN/Creatinine Ratio 6 (6-26); Blood Urea Nitrogen 5 mg/dL (6-20); Calcium 7.2 mg/dL (8.6-10.3); Carbon Dioxide 32 mEq/L (23-29); Chloride 100 mEq/L (98-107); Glucose 195 mg/dL (70-105); Osmolality,Calculated 297 (280-300); Potassium 3.1 mEq/L (3.5-5.1); Sodium 142 mEq/L (136-145); eGFR For African Americans > 60 (> 60); eGFR For Non-African Americans > 60 (> 60)
[2019-03-13] MEDS: Ipratropium/Albuterol Neb 3 ML IH SCH ×5 (03:39→20:40)
[2019-03-13] MEDS: *HR* Enoxaparin 40 MG/0.4 ML SYRINGE SQ SCH (05:08)
--- NOTE | 2019-03-13 06:46 | Pulmonology Progress Note ---
<Kt Marquez M - Last Filed: 03/13/19 17:13> Date of Encounter: 03/13/19 Time of Encounter: 16:00 Assessment and Plan (1) Acute respiratory failure with hypoxia Current Visit: Yes Status: Acute Presented to ED for abdominal complaints, found to be hypoxic Patient has been desatting sporadically during hospital course, dropping to 50's during EGD Currently requiring 3L NC to maintain SpO2 greater than 88% Patient does require 2L O2 at home, only at night Initial ABG showed respiratory alkalosis with hypochloremic metabolic alkalosis, rpt ABG normal Patient does not appear to be a chronic CO2 retainer per review of records Likely V/q mismatch, etiology likely CV related, patient takes daily lasix Severe LEROY likely contributing as well, patient did exhibit two bouts of apnea during my initial encounter prior to being woken up Echo revealed HFpEF with Mild LVDD Diuresis increased to 40mG IV BID with good UOP Plan: -Continue diuresis, monitor kidney function -2L fluid restriction, salt restriction -CPAP at night -Continue Frequent Bronchodilators -Continue to supplement O2 currently on 3L but reports no SOB, attempt to wean -Patient will need outpatient Sleep Study, will attempt to coordinate priority scheduling d/t severity (2) COPD (chronic obstructive pulmonary disease) Current Visit: Yes Status: Acute Patient has a history of COPD -Unknown severity, no PFT's on file -2/2 tobacco abuse, 42 pack-year history -On 2L O2 HS -Compliant with inhalers, Advair and Albuterol -No recent cough, wheeze, sputum production -Not in acute exacerbation currently Plan: -Continue with Duonebs Q4hrs -Agree with no systemic steroids/ABX -Follow up O/P with Pulm for PFT Qualifiers: Emphysema type: unspecified Qualified Code(s): J43.9 - Emphysema, unspecified (3) Obesity hypoventilation syndrome Current Visit: Yes Status: Acute counseled Subjective Interval history: Patient seen and examined. Reports symptomatic improvement in breathing. Patient tolerated CPAP overnight. Denies any new or worsening symptoms. No cough or wheezing at this time. Still requiring supplemental O2 to maintain SpO2 greater than 88%. Currently on 4L. Echo results show mild diastolic HF, EF preserved. C ontinue diuresis. Objective PUL Vital signs: Last Vital Signs Temp 98.3 F 03/13/19 05:11 Pulse 67 03/13/19 05:11 Resp 16 03/13/19 05:11 BP 158/80 03/13/19 05:11 Pulse Ox 100 03/13/19 05:11 Gen.: Resting comfortably. Obese. Vitals noted. Head: Atraumatic, normocephalic Eyes: Anicteric sclerae, EOMI ENT: Mucous membranes dry, oropharynx clear Neck: Mallampati 4 CV: RRR, no murmurs Resp: B/L rhonchi appreciated, no crackles, course breath sounds Abd: soft, mildly tender RUQ Ext: no peripheral edema Results - Laboratory Findings CBC and BMP: 03/11/19 04:59 03/13/19 02:25 ABG ABG pH 7.43 pH Units (7.32-7.45) 03/11/19 05:44 ABG pCO2 42 mmHg (35-45) 03/11/19 05:44 ABG pO2 99 mmHg (85-104) 03/11/19 05:44 ABG O2 Saturation 98 % (95-98) 03/11/19 05:44 Abnormal lab findings: Abnormal lab results RBC 5.31 M/mcL (3.82-4.97) H 03/11/19 04:59 Hgb 15.6 g/dL (11.5-15.4) H 03/10/19 15:35 Hct 48.5 % (35.3-44.9) H 03/10/19 15:35 MCV 82.7 fL (83.0-100.0) L 03/11/19 04:59 MCH 26.0 pg (28.0-33.3) L 03/11/19 04:59 MCHC 31.4 g/dL (31.6-35.5) L 03/11/19 04:59 RDW 15.9 % (11.5-14.5) H 03/11/19 04:59 MPV 13.3 fL (9.4-12.4) H 03/11/19 04:59 Immature Plt Fraction 12.2 % (1.1-6.1) H 03/10/19 15:35 ABG pH 7.60 pH Units (7.32-7.45) H* 03/10/19 22:08 ABG pCO2 23 mmHg (35-45) L 03/10/19 22:08 ABG pO2 72 mmHg (85-104) L 03/10/19 22:08 ABG HCO3 28 mEq/L (21-27) H 03/11/19 05:44 ABG Total CO2 29 mEq/L (20-26) H 03/11/19 05:44 Sodium 132 mEq/L (136-145) L 03/10/19 15:35 Potassium 3.1 mEq/L (3.5-5.1) L 03/13/19 02:25 Chloride 92 mEq/L (98-107) L 03/10/19 15:35 Carbon Dioxide 32 mEq/L (23-29) H 03/13/19 02:25 BUN 5 mg/dL (6-20) L 03/13/19 02:25 Creatinine 0.59 mg/dL (0.60-1.20) L 03/12/19 09:39 Glucose 195 mg/dL (70-105) H 03/13/19 02:25 POC Glucose 157 mg/dL (70-99) H 03/12/19 19:40 Hemoglobin A1c 10.1 % (-5.6) H 03/10/19 22:00 Calcium 7.2 mg/dL (8.6-10.3) L 03/13/19 02:25 Phosphorus 2.3 mg/dL (2.7-4.5) L 03/11/19 04:59 Magnesium 1.0 mg/dL (1.6-2.6) L 03/13/19 02:25 B-Natriuretic Peptide 364 pg/mL (Less than 100) H 03/11/19 17:58 Urine Clarity Turbid (Clear) A 03/10/19 15:19 Ur Leukocyte Esterase Small (Negative) H 03/10/19 15:19 Urine Microscopic RBC 3-5 per hpf (0-3) H 03/10/19 15:19 Urine Microscopic WBC 15-30 per hpf (0-3) H 03/10/19 15:19 Ur Squamous Epith Cells Many per lpf (None-Few) H 03/10/19 15:19 Urine Bacteria Moderate per hpf (None-Few) H 03/10/19 15:19 Ur Culture Indicated? YES (NO) A 03/10/19 15:19 Urine Opiates Screen Positive ng/mL (Ttbpbe=344) H 03/11/19 06:00 - Microbiology Findings Microbiology Findings: Microbiology, Last 48 Hours 03/10/19 15:19 Urine Culture - Final Urine,Clean Catch No significant growth. - Clinical Findings Intake & Output: Intake & Output 03/12/19 03/12/19 03/13/19 15:59 23:59 07:59 Intake Total 720 / 3892 3172 / 3892 Balance 720 / 3892 3172 / 3892 Weight 80.4 kg Consult Discharge Plan - Plan Referrals: Geoffrey Mayberry DO [Primary Care Provider] - <Orly Mathews - Last Filed: 03/13/19 20:40> Date of Encounter: 03/13/19 Objective PUL Vital signs: Last Vital Signs Temp 98.4 F 03/13/19 19:50 Pulse 75 03/13/19 19:50 Resp 15 03/13/19 19:50 BP 132/85 03/13/19 19:50 Pulse Ox 100 03/13/19 19:50 Results - Laboratory Findings CBC and BMP: 03/11/19 04:59 03/13/19 02:25 ABG ABG pH 7.43 pH Units (7.32-7.45) 03/11/19 05:44 ABG pCO2 42 mmHg (35-45) 03/11/19 05:44 ABG pO2 99 mmHg (85-104) 03/11/19 05:44 ABG O2 Saturation 98 % (95-98) 03/11/19 05:44 Abnormal lab findings: Abnormal lab results RBC 5.31 M/mcL (3.82-4.97) H 03/11/19 04:59 Hgb 15.6 g/dL (11.5-15.4) H 03/10/19 15:35 Hct 48.5 % (35.3-44.9) H 03/10/19 15:35 MCV 82.7 fL (83.0-100.0) L 03/11/19 04:59 MCH 26.0 pg (28.0-33.3) L 03/11/19 04:59 MCHC 31.4 g/dL (31.6-35.5) L 03/11/19 04:59 RDW 15.9 % (11.5-14.5) H 03/11/19 04:59 MPV 13.3 fL (9.4-12.4) H 03/11/19 04:59 Immature Plt Fraction 12.2 % (1.1-6.1) H 03/10/19 15:35 ABG pH 7.60 pH Units (7.32-7.45) H* 03/10/19 22:08 ABG pCO2 23 mmHg (35-45) L 03/10/19 22:08 ABG pO2 72 mmHg (85-104) L 03/10/19 22:08 ABG HCO3 28 mEq/L (21-27) H 03/11/19 05:44 ABG Total CO2 29 mEq/L (20-26) H 03/11/19 05:44 Sodium 132 mEq/L (136-145) L 03/10/19 15:35 Potassium 3.1 mEq/L (3.5-5.1) L 03/13/19 02:25 Chloride 92 mEq/L (98-107) L 03/10/19 15:35 Carbon Dioxide 32 mEq/L (23-29) H 03/13/19 02:25 BUN 5 mg/dL (6-20) L 03/13/19 02:25 Creatinine 0.59 mg/dL (0.60-1.20) L 03/12/19 09:39 Glucose 195 mg/dL (70-105) H 03/13/19 02:25 POC Glucose 248 mg/dL (70-99) H 03/13/19 16:57 Hemoglobin A1c 10.1 % (-5.6) H 03/10/19 22:00 Calcium 7.2 mg/dL (8.6-10.3) L 03/13/19 02:25 Phosphorus 2.3 mg/dL (2.7-4.5) L 03/11/19 04:59 Magnesium 1.0 mg/dL (1.6-2.6) L 03/13/19 02:25 B-Natriuretic Peptide 364 pg/mL (Less than 100) H 03/11/19 17:58 Urine Clarity Turbid (Clear) A 03/10/19 15:19 Ur Leukocyte Esterase Small (Negative) H 03/10/19 15:19 Urine Microscopic RBC 3-5 per hpf (0-3) H 03/10/19 15:19 Urine Microscopic WBC 15-30 per hpf (0-3) H 03/10/19 15:19 Ur Squamous Epith Cells Many per lpf (None-Few) H 03/10/19 15:19 Urine Bacteria Moderate per hpf (None-Few) H 03/10/19 15:19 Ur Culture Indicated? YES (NO) A 03/10/19 15:19 Urine Opiates Screen Positive ng/mL (Aasveh=053) H 03/11/19 06:00 - Clinical Findings Intake & Output: Intake & Output 03/13/19 03/13/19 03/13/19 07:59 15:59 23:59 Intake Total 600 / 840 240 / 840 Output Total 600 / 1200 600 / 1200 Balance 0 / -360 -360 / -360 Weight 80.4 kg - Attending Attestation I saw and evaluated this patient and my medical decision-making was reviewed with the Resident Physician. I agree with the documented findings, disposition and treatment plan as described except to the extent set forth below. We independently had [id number] contact with the patient Patient seen and examined at bedside Labs, radiology, chart personally reviewed. Patient had acute hypoxic respiratory failure most likely complicated by exacerbation of diastolic heart failure when she is a clinically euvolemic contracture sent to her home regimen.. According to patient PND and orthopnea a lot better. Patient has significant sleep disordered breathing will need outpatient sleep evaluation. To continue gentle gentle diuresis as tolerated to monitor serum electrolytes. Pulmonary we will sign off please set up follow-up with me next week.
[2019-03-13] MEDS: Gabapentin 100 MG CAPSULE PO SCH ×3 (08:23→21:45)
[2019-03-13] MEDS: Insulin LISPRO 300 UNITS/3 ML VIAL SQ SCH ×4 (08:24→21:46)
[2019-03-13] MEDS: Sucralfate 1 GM TABLET PO SCH ×4 (08:24→21:45)
[2019-03-13] MEDS: Furosemide 40 MG/4 ML VIAL IVP SCH ×2 (08:24→16:13)
--- NOTE | 2019-03-13 13:32 | Internal Med Progress Note ---
Hospitalist Progress Note - Encounter Date of Encounter: 03/13/19 Time of Encounter: 11:00 - Subjective Interval History: Patient was seen and examined at bedside.. She denied any chest pain.. She still having shortness of breath/dyspnea on exertion, however overall feels little better today She is currently on 3 lit oxygen. Patient stated she does use oxygen at home 2 L at night time - Exam Vitals: Temp Pulse Resp BP Pulse Ox 97.9 F 74 17 138/81 96 03/13/19 12:10 03/13/19 12:10 03/13/19 12:10 03/13/19 12:10 03/13/19 12:10 Exam: Gen: Alert, awake, Oriented to time,place and person Chest: Diminished breath sounds B/L, mild wheezing, crackles +, No rales Heart: S1S2+ RRR No murmurs Abd: Soft, NT, BS +, No organomegaly Ext: trace edema, pulses are palpable, No calf tenderness Neuro : No acute focal neuro deficits noticed Skin: No rash. - Assessment and Plan (1) Acute esophagitis Current Visit: Yes Status: Acute Assessment and Plan: s/p EGD showed severe esophagitis.. Mostly induced by NSAIDS counseled to stay off NSAIDS on PPI + Carafate (2) Abdominal pain Current Visit: Yes Status: Acute Assessment and Plan: as above (3) Acute diastolic CHF (congestive heart failure) Current Visit: Yes Status: Acute Assessment and Plan: She does have mild CHF exacerbation with elevated BNP improving cut down on IV Lasix to 20mg BID Reviewed 2D echo showed preserved LVEF and mild diastolic dysfunction will start her on low-dose beta nora she does have hypokalemia will replace K + (4) Acute respiratory failure with hypoxia Current Visit: Yes Status: Acute Assessment and Plan: she does have acute on chronic hypoxic respiratory failure Due to hypoventilation syndrome and obstructive sleep apnea also concerning for possible COPD exacerbation continue on oxygen. Try to wean her off the oxygen as she tolerates need home O2 eval and overnight pulse oxy study cont frequent bronchodilators therapy also started her on Symbicort appreciate pulmonology recommendations (5) Hypoventilation syndrome Current Visit: Yes Status: Acute Assessment and Plan: care as above counseled to loose weight Need out pt sleep studies (6) Morbid obesity Current Visit: Yes Status: Acute (7) COPD (chronic obstructive pulmonary disease) Current Visit: Yes Status: Acute Assessment and Plan: She is an mild exacerbation no need of systemic steroids started her on frequent bronchodilator therapy no need of abx.. No signs of inf continue close monitoring (8) Hypertension Current Visit: Yes Status: Acute Assessment and Plan: Stable blood pressure for now - Time Spent with Patient Total time spent is greater than 50% in coordination of care (as documented) at patient's floor/unit and/or counseling patient: Internal Medicine: Result - Labs CBC & Chem 7: 03/11/19 04:59 03/13/19 02:25 Labs: BMP 03/13/19 02:25 Sodium 142 Potassium 3.1 L Chloride 100 Carbon Dioxide 32 H BUN 5 L Creatinine 0.77 Glucose 195 H Calcium 7.2 L - ABG Interpretation ABG results: ABG ABG pH 7.43 pH Units (7.32-7.45) 03/11/19 05:44 ABG pCO2 42 mmHg (35-45) 03/11/19 05:44 ABG pO2 99 mmHg (85-104) 03/11/19 05:44 ABG O2 Saturation 98 % (95-98) 03/11/19 05:44 Consult Discharge Plan - Plan Referrals: Geoffrey Mayberry DO [Primary Care Provider] - (2) Abdominal pain Qualifiers: Abdominal location: epigastric Qualified Code(s): R10.13 - Epigastric pain (7) COPD (chronic obstructive pulmonary disease) Qualifiers: Emphysema type: unspecified Qualified Code(s): J43.9 - Emphysema, unspecified (8) Hypertension Qualifiers: Hypertension type: essential hypertension Qualified Code(s): I10 - Essential (primary) hypertension
[2019-03-13] MEDS: Budesonide/Formoterol 160/4.5 1 PUFF INH IH SCH ×2 (15:58→20:39)
[2019-03-14] MEDS: Ipratropium/Albuterol Neb 3 ML IH SCH ×7 (00:50→23:57)
[2019-03-14 02:44] LABS: BUN/Creatinine Ratio 12 (6-26); Blood Urea Nitrogen 8 mg/dL (6-20); Carbon Dioxide 34 mEq/L (23-29); Chloride 97 mEq/L (98-107); Glucose 278 mg/dL (70-105); Magnesium 1.1 mg/dL (1.6-2.6); Osmolality,Calculated 294 (280-300); Potassium 3.8 mEq/L (3.5-5.1); Sodium 138 mEq/L (136-145); eGFR For African Americans > 60 (> 60); eGFR For Non-African Americans > 60 (> 60)
[2019-03-14] MEDS: *HR* Enoxaparin 40 MG/0.4 ML SYRINGE SQ SCH (05:25)
[2019-03-14] MEDS: Furosemide 40 MG/4 ML VIAL IVP SCH ×2 (08:51→17:42)
[2019-03-14] MEDS: Sucralfate 1 GM TABLET PO SCH ×4 (08:51→20:32)
[2019-03-14] MEDS: Gabapentin 100 MG CAPSULE PO SCH ×3 (08:51→20:32)
[2019-03-14] MEDS: Insulin LISPRO 300 UNITS/3 ML VIAL SQ SCH ×4 (08:55→20:35)
[2019-03-14] MEDS: Budesonide/Formoterol 160/4.5 1 PUFF INH IH SCH ×2 (11:17→19:57)
--- NOTE | 2019-03-14 11:43 | Internal Med Progress Note ---
Hospitalist Progress Note - Encounter Date of Encounter: 03/14/19 Time of Encounter: 10:40 - Subjective Interval History: Patient was seen and examined at bedside.. She denied any chest pain.. Her SOB and MA are better today She is currently on 2 lit oxygen. Patient stated she does use oxygen at home 2 L at night time - Exam Vitals: Temp Pulse Resp BP Pulse Ox 97.3 F L 93 16 123/78 99 03/14/19 11:16 03/14/19 11:16 03/14/19 11:17 03/14/19 11:16 03/14/19 11:17 Exam: Gen: Alert, awake, Oriented to time,place and person Chest: Diminished breath sounds B/L, mild wheezing, crackles +, No rales Heart: S1S2+ RRR No murmurs Abd: Soft, NT, BS +, No organomegaly Ext: Improving edema, pulses are palpable, No calf tenderness Neuro : No acute focal neuro deficits noticed Skin: No rash. - Assessment and Plan (1) Acute diastolic CHF (congestive heart failure) Current Visit: Yes Status: Acute Assessment and Plan: She does have mild CHF exacerbation with elevated BNP improving Cont IV Lasix to 20mg BID Reviewed 2D echo showed preserved LVEF and mild diastolic dysfunction Started on low-dose beta nora Her K + improved she does have severe hypomagnesemia- will replace her Mg (2) Acute respiratory failure with hypoxia Current Visit: Yes Status: Acute Assessment and Plan: she does have acute on chronic hypoxic respiratory failure Due to hypoventilation syndrome and obstructive sleep apnea also concerning for possible COPD exacerbation continue on oxygen. Try to wean her off the oxygen as she tolerates need home O2 eval and overnight pulse oxy study cont frequent bronchodilators therapy cont Symbicort appreciate pulmonology recommendations (3) COPD (chronic obstructive pulmonary disease) Current Visit: Yes Status: Acute Assessment and Plan: She is an mild exacerbation no need of systemic steroids con frequent bronchodilator therapy no need of abx.. No signs of inf continue close monitoring (4) Acute esophagitis Current Visit: Yes Status: Acute Assessment and Plan: s/p EGD showed severe esophagitis.. Mostly induced by NSAIDS counseled to stay off NSAIDS on PPI + Carafate (5) Abdominal pain Current Visit: Yes Status: Acute Assessment and Plan: as above (6) Hypoventilation syndrome Current Visit: Yes Status: Acute Assessment and Plan: She has severe LEROY, need CPAP at night time , otherwise she is de saturating so low Will do over night pulse oxy study counseled to loose weight Need out pt sleep studies (7) Morbid obesity Current Visit: Yes Status: Acute (8) Hypertension Current Visit: Yes Status: Acute Assessment and Plan: Stable blood pressure for now (9) Physical deconditioning Current Visit: Yes Status: Acute Assessment and Plan: She does need 24 hr supervision care with her all the complex medical problem along with underline psychiatric problems She has severe LEROY, need CPAP at night time , otherwise she is de saturating so low - Time Spent with Patient Total time spent is greater than 50% in coordination of care (as documented) at patient's floor/unit and/or counseling patient: Internal Medicine: Result - Labs CBC & Chem 7: 03/11/19 04:59 03/14/19 02:05 Labs: BMP 03/14/19 02:05 Sodium 138 Potassium 3.8 Chloride 97 L Carbon Dioxide 34 H BUN 8 Creatinine 0.69 Glucose 278 H Calcium 8.0 L - ABG Interpretation ABG results: ABG ABG pH 7.43 pH Units (7.32-7.45) 03/11/19 05:44 ABG pCO2 42 mmHg (35-45) 03/11/19 05:44 ABG pO2 99 mmHg (85-104) 03/11/19 05:44 ABG O2 Saturation 98 % (95-98) 03/11/19 05:44 Consult Discharge Plan - Plan Referrals: Geoffrey Mayberry DO [Primary Care Provider] - (3) COPD (chronic obstructive pulmonary disease) Qualifiers: Emphysema type: unspecified Qualified Code(s): J43.9 - Emphysema, unspecified (5) Abdominal pain Qualifiers: Abdominal location: epigastric Qualified Code(s): R10.13 - Epigastric pain (8) Hypertension Qualifiers: Hypertension type: essential hypertension Qualified Code(s): I10 - Essential (primary) hypertension
[2019-03-14 11:45] LABS: Chlamydia Trachomatis DNA Ur NOT DETECTED (Not Detect)
[2019-03-15 02:09] LABS: BUN/Creatinine Ratio 16 (6-26); Blood Urea Nitrogen 11 mg/dL (6-20); Calcium 8.6 mg/dL (8.6-10.3); Carbon Dioxide 27 mEq/L (23-29); Chloride 95 mEq/L (98-107); Glucose 298 mg/dL (70-105); Magnesium 1.7 mg/dL (1.6-2.6); Osmolality,Calculated 286 (280-300); Potassium 3.9 mEq/L (3.5-5.1); Sodium 133 mEq/L (136-145); eGFR For African Americans > 60 (> 60); eGFR For Non-African Americans > 60 (> 60)
[2019-03-15] MEDS: Ipratropium/Albuterol Neb 3 ML IH SCH ×3 (04:28→11:02)
[2019-03-15] MEDS: *HR* Enoxaparin 40 MG/0.4 ML SYRINGE SQ SCH (05:28)
[2019-03-15] MEDS: Budesonide/Formoterol 160/4.5 1 PUFF INH IH SCH (07:39)
[2019-03-15] MEDS: Sucralfate 1 GM TABLET PO SCH ×2 (07:54→12:45)
[2019-03-15] MEDS: Gabapentin 100 MG CAPSULE PO SCH (07:54)
[2019-03-15] MEDS: Insulin LISPRO 300 UNITS/3 ML VIAL SQ SCH ×2 (07:54→12:45)
[2019-03-15] MEDS: Furosemide 40 MG/4 ML VIAL IVP SCH (07:55)
--- NOTE | 2019-03-15 11:40 | Discharge Summary ---
- NOTES TO OUTPATIENT PROVIDER Notes to Outpatient Provider: f/u with PCP in one week. f/u with Pulmonary in 1-2 weeks. Please use CPAP at night time.. Need to go for out pt sleep studies. Date of Encounter: 03/15/19 Time of Encounter: 11:36 - Discharge Diagnosis (1) Acute diastolic CHF (congestive heart failure) Priority: Primary Status: Acute (2) Acute respiratory failure with hypoxia Priority: Primary Status: Acute (3) COPD (chronic obstructive pulmonary disease) Priority: Primary Status: Acute Qualifiers: Emphysema type: unspecified Qualified Code(s): J43.9 - Emphysema, unspecified (4) Acute esophagitis Priority: Primary Status: Acute (5) Abdominal pain Priority: Secondary Status: Acute Qualifiers: Abdominal location: epigastric Qualified Code(s): R10.13 - Epigastric pain (6) Hypoventilation syndrome Priority: Secondary Status: Acute (7) Morbid obesity Priority: Secondary Status: Acute (8) Hypertension Priority: Secondary Status: Acute Qualifiers: Hypertension type: essential hypertension Qualified Code(s): I10 - Essential (primary) hypertension (9) Physical deconditioning Priority: Secondary Status: Acute Hospital course: Ms. Mayberry is a 53 year old female with past medical history of type 2 diabetes, morbid obesity and COPD pt presented to the ED for intractable nausea and vomiting. She was admitted in the hospital and started her on symptomatic and supportive care. She did go for endoscopy, during EGD she happened to have severe hypoxia with Spo2 in 50's. Her EGD showed severe esophagitis.. Mostly induced by NSAIDS. So counseled to stay off NSAIDS and started her on PPI + Carafate. She did have volume over load due to acute diastolic CHF exacerbation. She was started on aggressive IV diuresis. She does have mild COPD exacerbation and severe LEROY. She was started on frequent bronchodilator therapy and Symbicort. She was also placed on CPAP at bed time. Pt has been doing well now. She does need 24 hr supervision care and PT . OT, so will d/c her to ECF in stable condition today. Currently she is on 3 lit O2 continuously. - Time Spent with Patient Total time spent providing and/or coordinating discharge services: - Discharge Medications Prescriptions: New Sucralfate [Carafate] 1 gm PO QIDAC #120 tablet Carvedilol [Coreg] 3.125 mg PO BIDWM tablet Ipratropium/Albuterol Neb [Duoneb] 3 ml IH Q6HR PRN inhsol PRN Reason: Shortness Of Breath Budesonide/Formoterol 160/4.5 [Symbicort 160/4.5] 1 puff IH BIDR #1 hfa.aer.ad Continued Glimepiride [Amaryl] 2 mg PO 0800 Dexlansoprazole [Dexilant] 30 mg PO DAILY Fluticasone Propion/Salmeterol [Fluticasone-Salmeterol 100-50] 1 puff PO BID Insulin Degludec [Tresiba Flextouch U-100] 50 units SQ HS Metformin HCl [Glucophage] 1,000 mg PO BID Omeprazole [PriLOSEC] 40 mg PO DAILY Polyethylene Glycol 3350 [MiraLax bowel prep] 17 gm PO DAILY FLUoxetine HCl [Prozac] 40 mg PO DAILY Loratadine [Claritin] 10 mg PO DAILY Lurasidone HCl [Latuda] 80 mg PO DAILY Fluticasone Propionate Nasal [Flonase] 50 mcg NS DAILY Oxybutynin Chloride [Ditropan XL] 10 mg PO DAILY Fenofibrate [Tricor] 54 mg PO DAILY Insulin ASPART [Novolog] 0 units SQ TIDAC Ondansetron ODT [Zofran ODT] 4 mg SL Q6HR #10 tab.rapdis Atorvastatin [Lipitor] 80 mg PO HS Potassium Chloride [Klor-Con 10] 10 meq PO DAILY Furosemide [Lasix] 40 mg PO BID Lisinopril [Zestril] 5 mg PO DAILY Alogliptin Benzoate [Alogliptin] 25 mg PO DAILY Discontinued HYDROcodone/Acet 5/325 mg [Iron 5-325 mg] 1 tab PO Q4H PRN 3 Days #14 tab PRN Reason: Pain Promethazine [Phenergan] 25 mg PO Q6HR Home Medications: Glimepiride [Amaryl] 2 mg PO 0800 04/11/17 [History] FLUoxetine HCl [Prozac] 40 mg PO DAILY 02/27/19 [History] Fenofibrate [Tricor] 54 mg PO DAILY 02/27/19 [History] Fluticasone Propionate Nasal [Flonase] 50 mcg NS DAILY 02/27/19 [History] Insulin ASPART [Novolog] 0 units SQ TIDAC 02/27/19 [History] Loratadine [Claritin] 10 mg PO DAILY 02/27/19 [History] Lurasidone HCl [Latuda] 80 mg PO DAILY 02/27/19 [History] Ondansetron ODT [Zofran ODT] 4 mg SL Q6HR #10 tab.rapdis 02/27/19 [Rx] Oxybutynin Chloride [Ditropan XL] 10 mg PO DAILY 02/27/19 [History] Alogliptin Benzoate [Alogliptin] 25 mg PO DAILY 03/02/19 [History] Atorvastatin [Lipitor] 80 mg PO HS 03/02/19 [History] Furosemide [Lasix] 40 mg PO BID 03/02/19 [History] Lisinopril [Zestril] 5 mg PO DAILY 03/02/19 [History] Potassium Chloride [Klor-Con 10] 10 meq PO DAILY 03/02/19 [History] Dexlansoprazole [Dexilant] 30 mg PO DAILY 03/11/19 [History] Fluticasone Propion/Salmeterol [Fluticasone-Salmeterol 100-50] 1 puff PO BID 03/11/19 [History] Insulin Degludec [Tresiba Flextouch U-100] 50 units SQ HS 03/11/19 [History] Metformin HCl [Glucophage] 1,000 mg PO BID 03/11/19 [History] Omeprazole [PriLOSEC] 40 mg PO DAILY 03/11/19 [History] Polyethylene Glycol 3350 [MiraLax bowel prep] 17 gm PO DAILY 03/11/19 [History] Budesonide/Formoterol 160/4.5 [Symbicort 160/4.5] 1 puff IH BIDR #1 hfa.aer.ad 03/15/19 [Rx] Carvedilol [Coreg] 3.125 mg PO BIDWM tablet 03/15/19 [Rx] Ipratropium/Albuterol Neb [Duoneb] 3 ml IH Q6HR PRN inhsol 03/15/19 [Rx] Sucralfate [Carafate] 1 gm PO QIDAC #120 tablet 03/15/19 [Rx] Allergies/Adverse Reactions: Allergy/AdvReac Type Severity Reaction Status Date / Time No Known Allergies Allergy Verified 03/11/19 15:07 Date of admission: 03/12/19 11:39 Primary care physician: Geoffrey Mayberry DO Consults: 03/11/19 06:00 Consult to Gastroenterology [CONS] Routine Consulting Provider: [facility] [place] Reason for Consult: intractable nausea and vomiting Call Completed: No Consult to Psychiatry [CONS] Routine Consulting Provider: [facility] [place] Reason consult: Agitation Medication recommendation Other Other reason and/or additional details: very bizzare behavoir. 03/11/19 15:03 Consult to Pulmonology [CONS] Routine Consulting Provider: [facility] [place] Reason for Consult: Developed hypoxia during EGD..Does have severe LEROY.. May need CPAP / BiPAP Time Notified: 15:04 Call Completed: Yes 03/12/19 08:59 Consult to Nurse Navigator [CONS] Routine Comment: COPD 03/12/19 11:07 Consult to Physical Therapy [CONS] Routine Comment: Evaluate, develop and implement POC Reason for Consult: Need swing bed placement.. Does patient have active BEDREST order?: No Is patient medically & hemodynamically stable?: Yes Patient assessed for mobility or mobilized this visit?: Yes 03/14/19 09:06 Consult to Fretted Instrument Repairer [CONS] Routine Reason for SW Consult: PLACEMENT TO SNF. REFERRAL MADE TO [facility] - Constitutional Vitals: Temp Pulse Resp BP Pulse Ox 98.3 F 69 16 144/75 100 03/15/19 07:20 03/15/19 07:20 03/15/19 11:03 03/15/19 07:20 03/15/19 11:03 General appearance: Present: cooperative, A&O X 3, no acute distress, answers questions appropriately Exam: Gen: Alert, awake, Oriented to time,place and person Chest: Diminished breath sounds B/L, mild wheezing, crackles +, No rales Heart: S1S2+ RRR No murmurs Abd: Soft, NT, BS +, No organomegaly Ext: Improving edema, pulses are palpable, No calf tenderness Neuro : No acute focal neuro deficits noticed Skin: No rash. - Patient Status Disposition: Transfer SNF Condition: Good Overall status at discharge: patient is back to baseline - Discharge Instructions Follow Up With: Geoffrey Mayberry DO [Primary Care Provider] - Orly Mathews MD [Partnered Physician] - - Diet and Activity Activity: increase activity as tolerated, wear oxygen at all times Diet: low salt diet
[2019-03-15 11:41] VITALS: BP 135/79
--- NOTE | 2019-03-15 12:39 | Physician Discharge Referral ---
ExtendedCare Referral Info Transfer To: ECF Provider in Charge after Transfer: PCP Institutional Level of Care: Skilled - Diagnosis (1) Acute diastolic CHF (congestive heart failure) Status: Acute (2) Acute respiratory failure with hypoxia Status: Acute (3) COPD (chronic obstructive pulmonary disease) Status: Acute (4) Acute esophagitis Status: Acute (5) Abdominal pain Status: Acute (6) Hypoventilation syndrome Status: Acute (7) Morbid obesity Status: Acute (8) Hypertension Status: Acute (9) Physical deconditioning Status: Acute - Transfer Medications Prescriptions: Sucralfate [Carafate] 1 gm PO QIDAC #120 tablet Budesonide/Formoterol 160/4.5 [Symbicort 160/4.5] 1 puff IH BIDR #1 hfa.aer.ad Home Medications: Glimepiride [Amaryl] 2 mg PO 0800 04/11/17 [History] FLUoxetine HCl [Prozac] 40 mg PO DAILY 02/27/19 [History] Fenofibrate [Tricor] 54 mg PO DAILY 02/27/19 [History] Fluticasone Propionate Nasal [Flonase] 50 mcg NS DAILY 02/27/19 [History] Insulin ASPART [Novolog] 0 units SQ TIDAC 02/27/19 [History] Loratadine [Claritin] 10 mg PO DAILY 02/27/19 [History] Lurasidone HCl [Latuda] 80 mg PO DAILY 02/27/19 [History] Ondansetron ODT [Zofran ODT] 4 mg SL Q6HR #10 tab.rapdis 02/27/19 [Rx] Oxybutynin Chloride [Ditropan XL] 10 mg PO DAILY 02/27/19 [History] Alogliptin Benzoate [Alogliptin] 25 mg PO DAILY 03/02/19 [History] Atorvastatin [Lipitor] 80 mg PO HS 03/02/19 [History] Furosemide [Lasix] 40 mg PO BID 03/02/19 [History] Lisinopril [Zestril] 5 mg PO DAILY 03/02/19 [History] Potassium Chloride [Klor-Con 10] 10 meq PO DAILY 03/02/19 [History] Dexlansoprazole [Dexilant] 30 mg PO DAILY 03/11/19 [History] Fluticasone Propion/Salmeterol [Fluticasone-Salmeterol 100-50] 1 puff PO BID 03/11/19 [History] Insulin Degludec [Tresiba Flextouch U-100] 50 units SQ HS 03/11/19 [History] Metformin HCl [Glucophage] 1,000 mg PO BID 03/11/19 [History] Omeprazole [PriLOSEC] 40 mg PO DAILY 03/11/19 [History] Polyethylene Glycol 3350 [MiraLax bowel prep] 17 gm PO DAILY 03/11/19 [History] Budesonide/Formoterol 160/4.5 [Symbicort 160/4.5] 1 puff IH BIDR #1 hfa.aer.ad 03/15/19 [Rx] Carvedilol [Coreg] 3.125 mg PO BIDWM tablet 03/15/19 [Rx] Ipratropium/Albuterol Neb [Duoneb] 3 ml IH Q6HR PRN inhsol 03/15/19 [Rx] Sucralfate [Carafate] 1 gm PO QIDAC #120 tablet 03/15/19 [Rx] Allergies/Adverse Reactions: Allergy/AdvReac Type Severity Reaction Status Date / Time No Known Allergies Allergy Verified 03/11/19 15:07 - Respiratory Orders Smoking Cessation: Smoking cessation has been advised. For more information, call the [place] Tobacco Quit Line at 3-777-KVGI-NOW. CERTIFICATION: I certify that the transfer of the above named patient to an Extended Care Facility is necessary for the continuing treatment of the diagnosis listed. The above information is true and accurate reflection of patient's current condition. Confidential - Redisclosure prohibited without a patient's written consent.
== END 2019-03-15 14:10 | DRG 243 ==
LOC: 3BNU 14:58 → EMEROOARM 14:58 → SUATTDRO 19:06 → 3BNU 20:54
PROVIDERS: ADMIT Student in an Organized Health Care Education/Training Program; ATTEND Family Medicine